=== PATIENT | female | born 1970 | race African-American/Black ===

== ENCOUNTER 2017-05-13 08:47 | Emergency (ER) | payer OTHER, MEDICAID ==
[~2017-05-13] VITALS: Ht 162.6 cm; Wt 113.4 kg
[2017-05-13 09:56] LABS: Basophils # (auto) 0 uL; Basophils % (auto) 0.3 % (0.0-2.0); CONDITION Y; Eosinophils # (auto) 0.1 uL; Eosinophils % (auto) 2.6 % (0.0-7.0); Hemoglobin 14.4 g/dL (12.2-16.2); Lymphocytes # (auto) 1.2 uL; Lymphocytes % (auto) 24.3 % (10.0-50.0); Mean Corpuscular Hgb Conc. 33.5 g/dL (32.0-36.0); Mean Corpuscular Volume 86.7 fL (80.0-100.0); Mean Platelet Volume 9.2 fL (7.4-10.4); Monocytes # (auto) 0.4 uL; Monocytes % (auto) 8.7 % (0.0-12.0); Neutrophils # (auto) 3.2 uL; Neutrophils % (auto) 64.1 % (37.0-80.0); Platelet Count (auto) 265 10^3/uL (140-450); Red Cell Distribution Width 15.1 % (11.6-16.0)
[2017-05-13 10:13] LABS: Albumin 3.1 g/dL (3.4-5.0); Anion Gap 8 (5-15); Aspartate Aminotransferase 16 U/L (15-37); BUN/Creatinine Ratio 9.3; Blood Urea Nitrogen 7 mg/dL (7-18); Calcium 8.8 mg/dL (8.5-10.1); Carbon Dioxide 25 mmol/L (21-32); Chloride 106 mmol/L (98-107); GFR African American 106 mL/min; GFR Non-African American 87 mL/min; Glucose 99 mg/dL (74-106); Potassium 4.1 mmol/L (3.5-5.1); Sodium 139 mmol/L (136-145)
[2017-05-13 10:18] LABS: Alkaline Phosphatase 78 U/L (45-117); Bilirubin, Total 0.3 mg/dL (0.2-1.0); Total Protein 7.9 g/dL (6.4-8.2)
[2017-05-13 10:22] LABS: B-Type Natriuretic Peptide 34.48 pg/mL (0-100)
[2017-05-13 10:25] LABS: Temperature: 22.9 C (20.0-25.0)
[2017-05-13] MEDS ORDERED: cloNIDine HCL 0.1 MG TAB PO ONE (12:00)
[2017-05-13 13:06] VITALS: BP 188/111
[2017-05-13 13:59] LABS: Urine RBC None Seen /hpf (0 - 4)
[2017-05-13 14:07] LABS: Urine Bilirubin Negative (Negative); Urine Blood Negative /uL (Negative); Urine Color Yellow (Yellow); Urine Glucose Normal (Normal); Urine Ketone Negative (Negative); Urine Nitrite Negative (Negative); Urine Squamous Epithelial Cell FEW /hpf (<5); Urine Urobilinogen Normal (Negative); Urine pH 6.5 (5.0-8.0)
== END 2017-05-13 13:34 | disposition home or self-care (01) ==
LOC: ER 08:47
DX: I10 Essential (primary) hypertension (principal); R60.0 Localized edema; Z91.14 Patient's other noncompliance with medication regimen; J45.909 Unspecified asthma, uncomplicated; Z90.710 Acquired absence of both cervix and uterus; E66.9 Obesity, unspecified; Z68.41 Body mass index [BMI] 40.0-44.9, adult
CPT/HCPCS: 36415; 71020; 80053; 81001; 83880; 84484; 85025; 85379; 93005; 93970

== ENCOUNTER 2017-06-21 11:09 | Emergency (ER) | payer OTHER, MEDICAID ==
[~2017-06-21] VITALS: Ht 165.1 cm; Wt 104.3 kg
[2017-06-21 12:24] LABS: Basophils # (auto) 0 uL; Basophils % (auto) 0.9 % (0.0-2.0); CONDITION Y; Eosinophils # (auto) 0.1 uL; Eosinophils % (auto) 2.3 % (0.0-7.0); Hematocrit 44.4 % (36.0-46.0); Hemoglobin 14.4 g/dL (12.2-16.2); Lymphocytes % (auto) 20.4 % (10.0-50.0); Mean Corpuscular Hemoglobin 28.1 pg (28.0-32.0); Mean Corpuscular Hgb Conc. 32.4 g/dL (32.0-36.0); Mean Corpuscular Volume 86.8 fL (80.0-100.0); Mean Platelet Volume 9.7 fL (7.4-10.4); Monocytes # (auto) 0.3 uL; Neutrophils # (auto) 3.3 uL; Neutrophils % (auto) 69.4 % (37.0-80.0); Platelet Count (auto) 302 10^3/uL (140-450); Red Cell Distribution Width 14.9 % (11.6-16.0); White Blood Cell 4.8 10^3/uL (4.4-10.8)
[2017-06-21 13:59] LABS: Albumin 3.2 g/dL (3.4-5.0); Alkaline Phosphatase 78 U/L (45-117); Anion Gap 9 (5-15); Aspartate Aminotransferase 20 U/L (15-37); BUN/Creatinine Ratio 11.1; Bilirubin, Total 0.4 mg/dL (0.2-1.0); Blood Urea Nitrogen 7 mg/dL (7-18); Calcium 8.7 mg/dL (8.5-10.1); Carbon Dioxide 24 mmol/L (21-32); Chloride 104 mmol/L (98-107); GFR African American 129 mL/min; GFR Non-African American 107 mL/min; Glucose 95 mg/dL (74-106); Magnesium 2.2 mg/dL (1.6-2.6); Potassium 3.6 mmol/L (3.5-5.1); Sodium 137 mmol/L (136-145); Total Protein 8.2 g/dL (6.4-8.2)
[2017-06-21 14:03] LABS: B-Type Natriuretic Peptide 1.14 pg/mL (0-100)
[2017-06-21 14:16] LABS: Temperature: 22.3 C (20.0-25.0)
[2017-06-21 17:00] VITALS: BP 138/83
[2017-06-21] MEDS ORDERED: cloNIDine HCL 0.1 MG TAB PO ONE (17:00)
== END 2017-06-21 17:16 | disposition home or self-care (01) ==
LOC: ER 11:09
DX: R60.0 Localized edema (principal); I10 Essential (primary) hypertension; J45.909 Unspecified asthma, uncomplicated; Z90.710 Acquired absence of both cervix and uterus; E66.01 Morbid (severe) obesity due to excess calories; Z68.38 Body mass index [BMI] 38.0-38.9, adult
CPT/HCPCS: 36415; 80053; 83735; 83880; 84484; 85025; 93005; 94761

== ENCOUNTER 2017-12-30 21:48 | Emergency (ER) | payer OTHER, MEDICAID ==
[~2017-12-30] VITALS: Ht 170.2 cm; Wt 83.8 kg
[2017-12-30 23:09] LABS: Basophils # (auto) 0 uL; Basophils % (auto) 0.7 % (0.0-2.0); Eosinophils # (auto) 0.1 uL; Eosinophils % (auto) 2.5 % (0.0-7.0); Hemoglobin 15.3 g/dL (12.2-16.2); Lymphocytes # (auto) 1.3 uL; Lymphocytes % (auto) 27.6 % (10.0-50.0); Mean Corpuscular Hemoglobin 27.6 pg (28.0-32.0); Mean Corpuscular Hgb Conc. 32.6 g/dL (32.0-36.0); Mean Corpuscular Volume 84.5 fL (80.0-100.0); Monocytes # (auto) 0.3 uL; Monocytes % (auto) 5.5 % (0.0-12.0); Neutrophils # (auto) 3.1 uL; Neutrophils % (auto) 63.7 % (37.0-80.0); Nucleated Red Blood Cells % 0.1 %; Platelet Count (auto) 252 10^3/uL (140-450); Red Blood Cells 5.56 10^6/uL (4.0-5.20); Red Cell Distribution Width 16.5 % (11.8-14.3); White Blood Cell 4.9 10^3/uL (4.4-10.8)
[2017-12-30 23:29] LABS: Albumin 3.3 g/dL (3.4-5.0); BUN/Creatinine Ratio 8.7; Calcium 8.8 mg/dL (8.5-10.1); Potassium 4.1 mmol/L (3.5-5.1)
[2017-12-30 23:31] LABS: Bilirubin, Total 0.3 mg/dL (0.2-1.0); Total Protein 8.7 g/dL (6.4-8.2)
[2017-12-31] MEDS ORDERED: SODIUM CHLORIDE 0.9% 1,000 ML IV ONE
[2017-12-31 00:39] LABS: Urine WBC None Seen /hpf (0 - 5)
[2017-12-31 00:42] LABS: Urine Bacteria NONE SEEN /hpf (None Seen); Urine Blood Negative /uL (Negative); Urine Specific Gravity 1.002 (1.001-1.035)
[2017-12-31 00:58] LABS: Amphetamine Screen, Urine NEGATIVE (NEGATIVE); Barbiturate Scree,Urine NEGATIVE (NEGATIVE); Benzodiazephine Screen, Urine NEGATIVE (NEGATIVE); Cannabinoid Screen, Urine NEGATIVE (NEGATIVE); Cocaine Screen, Urine NEGATIVE (NEGATIVE); Opiate Scree,Urine NEGATIVE (NEGATIVE); Phencyclidine Screen, Urine NEGATIVE (NEGATIVE)
[2017-12-31 01:11] VITALS: BP 119/82
== END 2017-12-31 01:35 | disposition home or self-care (01) ==
LOC: EDBD 21:48 → ER 21:53
DX: R53.1 Weakness (principal); F41.9 Anxiety disorder, unspecified; I10 Essential (primary) hypertension; E11.9 Type 2 diabetes mellitus without complications; J45.909 Unspecified asthma, uncomplicated; Z91.14 Patient's other noncompliance with medication regimen; Z90.710 Acquired absence of both cervix and uterus
CPT/HCPCS: 36415; 71045; 80053; 80307; 81001; 83605; 85025

== ENCOUNTER 2018-06-06 15:06 | Emergency (ER) | payer OTHER, MEDICAID ==
[~2018-06-06] VITALS: Ht 170.2 cm; Wt 127.0 kg
[2018-06-06 18:44] VITALS: BP 146/96
== END 2018-06-06 18:47 | disposition home or self-care (01) ==
LOC: ER 15:06
DX: S39.012A Strain of muscle, fascia and tendon of lower back, initial encounter (principal); M43.17 Spondylolisthesis, lumbosacral region; J45.909 Unspecified asthma, uncomplicated; E11.9 Type 2 diabetes mellitus without complications; I10 Essential (primary) hypertension; M25.521 Pain in right elbow; Z90.710 Acquired absence of both cervix and uterus; X50.9XXA Other and unspecified overexertion or strenuous movements or postures, initial encounter; Y93.89 Activity, other specified; Y92.89 Other specified places as the place of occurrence of the external cause; Y99.8 Other external cause status
CPT/HCPCS: 72100; 73070; 82962

== ENCOUNTER 2019-07-31 20:35 | Emergency (ER) | payer OTHER, MEDICAID ==
[~2019-07-31] VITALS: Ht 167.6 cm; Wt 127.0 kg
[2019-07-31 21:11] LABS: Basophils # (auto) 0 uL; Basophils % (auto) 1.1 % (0.0-2.0); Eosinophils # (auto) 0.1 uL; Eosinophils % (auto) 2.6 % (0.0-7.0); Hematocrit 47.9 % (36.0-46.0); Hemoglobin 15.8 g/dL (12.2-16.2); Lymphocytes # (auto) 1.5 uL; Lymphocytes % (auto) 36.9 % (10.0-50.0); Mean Corpuscular Hgb Conc. 33.1 g/dL (32.0-36.0); Mean Corpuscular Volume 87.6 fL (80.0-100.0); Monocytes # (auto) 0.3 uL; Monocytes % (auto) 7.1 % (0.0-12.0); Neutrophils # (auto) 2.1 uL; Neutrophils % (auto) 52.3 % (37.0-80.0); Nucleated Red Blood Cells % 0.1 %; Platelet Count (auto) 236 10^3/uL (140-450); Red Blood Cells 5.47 10^6/uL (4.0-5.20); Red Cell Distribution Width 14.8 % (11.8-14.3)
[2019-07-31 21:13] LABS: Urine WBC None Seen /hpf (0 - 5)
[2019-07-31] MEDS ORDERED: MVI in SODIUM CHLORIDE 0.9% 1,010 ML IV ONE (21:14)
[2019-07-31] MEDS ORDERED: THIAMINE 100mg/ml INJ (200mg/2ml VIAL) IV ONE ×2 (21:15→21:30)
[2019-07-31 21:23] LABS: Urine Bacteria NONE SEEN /hpf (None Seen); Urine Blood Negative /uL (Negative); Urine Specific Gravity 1.004 (1.001-1.035)
[2019-07-31 21:24] LABS: INR 0.95 (0.9-1.15); Partial Thromboplastin Time 25.6 sec (23.64-32.05)
[2019-07-31 21:29] LABS: Albumin 3.3 g/dL (3.4-5.0); Anion Gap 9 (5-15); Blood Urea Nitrogen 7 mg/dL (7-18); Calcium 8.7 mg/dL (8.5-10.1); Carbon Dioxide 22 mmol/L (21-32); Chloride 109 mmol/L (98-107); Glucose 124 mg/dL (74-106); Magnesium 2.2 mg/dL (1.6-2.6); Potassium 3.7 mmol/L (3.5-5.1); Sodium 140 mmol/L (136-145)
[2019-07-31] MEDS ORDERED: FUROSEMIDE 20 MG/2 ML VIAL IV ONE (21:30)
[2019-07-31 21:31] LABS: Lactic Acid w/Reflex 2.3 mmol/L (0.4-2.0)
[2019-07-31 21:33] LABS: Alanine Aminotransferase 20 U/L (13-56); Alkaline Phosphatase 96 U/L (45-117); Aspartate Aminotransferase 16 U/L (15-37); BUN/Creatinine Ratio 10.9; Bilirubin, Total 0.2 mg/dL (0.2-1.0); GFR African American 126 mL/min; GFR Non-African American 104 mL/min; Total Protein 8.5 g/dL (6.4-8.2)
[2019-07-31 21:41] LABS: Amphetamine Screen, Urine NEGATIVE (NEGATIVE); Barbiturate Scree,Urine NEGATIVE (NEGATIVE); Benzodiazephine Screen, Urine NEGATIVE (NEGATIVE); Cannabinoid Screen, Urine NEGATIVE (NEGATIVE); Cocaine Screen, Urine NEGATIVE (NEGATIVE); Opiate Scree,Urine NEGATIVE (NEGATIVE); Phencyclidine Screen, Urine NEGATIVE (NEGATIVE)
== END 2019-08-01 00:48 | disposition home or self-care (01) ==
LOC: EDBD 20:35 → ER 20:40
DX: R41.82 Altered mental status, unspecified (principal); G92 Toxic encephalopathy; F10.129 Alcohol abuse with intoxication, unspecified; I11.0 Hypertensive heart disease with heart failure; I50.9 Heart failure, unspecified; E11.9 Type 2 diabetes mellitus without complications; J45.909 Unspecified asthma, uncomplicated; Z90.710 Acquired absence of both cervix and uterus
CPT/HCPCS: 36415; 70450; 71045; 72125; 80053; 80307; 80320; 81001; 83605; 83735; 84484; 85025; 85610; 85730; 87040; 96374; 96375; 99284; J1940; J3411

== ENCOUNTER 2019-09-07 16:12 | Emergency (ER) | payer OTHER, MEDICAID ==
[~2019-09-07] VITALS: Ht 162.6 cm; Wt 120.7 kg
[2019-09-07 16:30] VITALS: BP 167/99
[2019-09-07] MEDS ORDERED: KETOROLAC TROMETH 60MG/2ML VIAL IM ONE (17:30)
== END 2019-09-07 17:51 | disposition home or self-care (01) ==
LOC: ER 16:12
DX: M17.12 Unilateral primary osteoarthritis, left knee (principal); J45.909 Unspecified asthma, uncomplicated; I11.0 Hypertensive heart disease with heart failure; I50.9 Heart failure, unspecified; E11.9 Type 2 diabetes mellitus without complications; Z90.710 Acquired absence of both cervix and uterus
CPT/HCPCS: 73562; 96372; 99283; J1885

== ENCOUNTER → 2020-01-08 | Emergency (ER) | payer OTHER, MEDICAID ==
[~2020-01-08] VITALS: Ht 162.6 cm; Wt 117.0 kg
[~2020-01-08] MED LIST: SODIUM CHLORIDE 0.9% 1,000 ML IV ONE; cefTRIAXone 1GM/50ML D5W 50 ML IV ONE; methylPREDNISolone SOD SUCC 125 MG/2 ML VL IV ONE
[2020-01-08 22:45] VITALS: BP 160/95
== END | disposition home or self-care (01) ==
LOC: EDUNIT# 20:38 → ER 20:38 → EDBD 20:38
DX: J02.9 Acute pharyngitis, unspecified (principal); I11.0 Hypertensive heart disease with heart failure; I50.9 Heart failure, unspecified; E11.9 Type 2 diabetes mellitus without complications; J45.909 Unspecified asthma, uncomplicated
CPT/HCPCS: 87804; 87880; 96365; 96375; 99284; J0696; J2930; J7030

== ENCOUNTER 2020-05-03 21:36 | Inpatient (IN) | payer OTHER, MEDICAID ==
[~2020-05-03] VITALS: Ht 167.6 cm; Wt 136.1 kg
[2020-05-03] MEDS ORDERED: ALBUTEROL SULF 2.5 MG/0.5ML(0.5%) NEB SOLN NEB ONE (23:00)
[2020-05-03] MEDS ORDERED: methylPREDNISolone SOD SUCC 125 MG in SODIUM CHL 0.9% 100 ML IV ONE (23:00)
[2020-05-03] MEDS ORDERED: IPRATROPIUM BROM 0.5 MG/2.5ML INH SOL NEB ONE (23:00)
[2020-05-03] MEDS ORDERED: cefTRIAXone 1GM/50ML D5W 50 ML IV ONE (23:00)
[2020-05-04] MEDS ORDERED: MORPHINE SULF INJ 2 MG/ML SYRINGE 1ML IV PRN (00:30)
[2020-05-04] MEDS ORDERED: ACETAMINOPHEN 500 MG TAB PO PRN (00:30)
[2020-05-04] MEDS ORDERED: ACETAMINOPHEN 325 MG TAB PO PRN (00:30)
[2020-05-04] MEDS ORDERED: HYDROcodone-ACET 5/325MG TAB PO PRN (00:30)
[2020-05-04] MEDS ORDERED: DOCUSATE SOD 100 MG CAP PO PRN (00:30)
[2020-05-04] MEDS ORDERED: ONDANSETRON HCL 4 MG/2 ML VIAL IV PRN (00:30)
[2020-05-04 00:48] LABS: Basophils # (auto) 0 10 ^3/uL (0-0.2); Basophils % (auto) 1.1 % (0.0-2.0); Eosinophils # (auto) 0.1 10 ^3/uL (0-0.8); Eosinophils % (auto) 1.5 % (0.0-7.0); Hemoglobin 15.5 g/dL (12.2-16.2); Lymphocytes # (auto) 1.9 10 ^3/uL (0.4-5.4); Mean Corpuscular Hemoglobin 28.4 pg (28.0-32.0); Mean Corpuscular Hgb Conc. 32.3 g/dL (32.0-36.0); Mean Corpuscular Volume 88.1 fL (80.0-100.0); Monocytes # (auto) 0.3 10 ^3/uL (0-1.3); Monocytes % (auto) 6.9 % (0.0-12.0); Neutrophils # (auto) 1.6 10 ^3/uL (1.6-8.6); Neutrophils % (auto) 40.5 % (37.0-80.0); Nucleated Red Blood Cells % 0.5 %; Platelet Count (auto) 227 10^3/uL (140-450); Red Blood Cells 5.44 10^6/uL (4.0-5.20); Red Cell Distribution Width 15.2 % (11.8-14.3); White Blood Cell 3.9 10^3/uL (4.4-10.8)
[2020-05-04 00:57] LABS: INR 1.01 (0.9-1.15); Partial Thromboplastin Time 25.3 sec (23.64-32.05)
[2020-05-04 01:01] LABS: Albumin 3.2 g/dL (3.4-5.0); Anion Gap 13 (5-15); Blood Urea Nitrogen 6 mg/dL (7-18); Calcium 8.2 mg/dL (8.5-10.1); Carbon Dioxide 20 mmol/L (21-32); Chloride 104 mmol/L (98-107); Glucose 189 mg/dL (74-106); Magnesium 1.9 mg/dL (1.6-2.6); Potassium 3.1 mmol/L (3.5-5.1); Sodium 137 mmol/L (136-145)
[2020-05-04 01:03] LABS: Alanine Aminotransferase 34 U/L (13-56); Aspartate Aminotransferase 29 U/L (15-37); BUN/Creatinine Ratio 7.6; GFR African American 98 mL/min; GFR Non-African American 81 mL/min
[2020-05-04 01:08] LABS: Alkaline Phosphatase 101 U/L (45-117); Bilirubin, Total 0.2 mg/dL (0.2-1.0); Total Protein 8.4 g/dL (6.4-8.2)
[2020-05-04] MEDS ORDERED: methylPREDNISolone SOD SUCC 125 MG/2 ML VL ONE (05:05)
[2020-05-04] MEDS ORDERED: ALBUTEROL SULF HFA 90MCG INH 200DOSE IN SCH (06:00)
[2020-05-04 10:00] VITALS: BP 154/95
[2020-05-04] MEDS ORDERED: ENOXAPARIN SOD 40 MG/0.4 ML SYRINGE SC SCH (10:00)
[2020-05-04] MEDS ORDERED: DOXYCYCLINE 100 MG TAB/CAP PO SCH (10:00)
[2020-05-04] MEDS ORDERED: ZINC SULFATE 220mg CAP or TAB PO SCH (10:00)
[2020-05-04] MEDS ORDERED: ASCORBIC ACID 1,000 MG TAB PO SCH (10:00)
[2020-05-04] MEDS ORDERED: CHOLECALCIFEROL (VITD3) 1,000UNIT=25mCg TAB PO SCH (10:00)
[2020-05-04] MEDS ORDERED: POTASSIUM CHL 20MEQ/100ML 100 ML IV SCH (12:30)
[2020-05-04] MEDS ORDERED: FUROSEMIDE 40 MG/4 ML VIAL IV ONE (12:30)
[2020-05-04] MEDS ORDERED: POTASSIUM CHL 20 Meq TABLET PO ONE (12:30)
[2020-05-04] MEDS ORDERED: LEVALBUTEROL HCL 1.25 MG/3 ML NEB NEB PRN (12:45)
[2020-05-04] MEDS ORDERED: ATORVASTATIN 20 MG TAB PO SCH (22:00)
== END 2020-05-04 10:20 | disposition left against medical advice (07) | DRG 202 ==
LOC: EDUNIT# 21:36 → ER 21:36 → EDBD 21:36 → TELE 21:37
PROVIDERS: ADMIT Hospitalist; ATTEND Hospitalist
DX: J45.901 Unspecified asthma with (acute) exacerbation (principal); Z68.42 Body mass index [BMI] 45.0-49.9, adult; I11.0 Hypertensive heart disease with heart failure; I50.9 Heart failure, unspecified; E11.9 Type 2 diabetes mellitus without complications; E66.01 Morbid (severe) obesity due to excess calories; Z53.29 Procedure and treatment not carried out because of patient's decision for other reasons; Z20.828 Contact with and (suspected) exposure to other viral communicable diseases; Z90.710 Acquired absence of both cervix and uterus; Z91.14 Patient's other noncompliance with medication regimen; E78.5 Hyperlipidemia, unspecified; Z82.49 Family history of ischemic heart disease and other diseases of the circulatory system; Z83.3 Family history of diabetes mellitus
CPT/HCPCS: 36415; 71045; 80053; 83735; 83880; 84484; 85025; 85610; 85730; 93005; 94640; G0378; J0696

== ENCOUNTER 2020-08-13 22:02 | Inpatient (IN) | payer OTHER, MEDICAID ==
[~2020-08-13] VITALS: Ht 162.6 cm; Wt 125.6 kg
[2020-08-13] MEDS ORDERED: IPRATROPIUM BROM 0.5 MG/2.5ML INH SOL HHN ONE (22:30)
[2020-08-13] MEDS ORDERED: methylPREDNISolone SOD SUCC 125 MG/2 ML VL IV ONE (22:30)
[2020-08-13] MEDS ORDERED: ALBUTEROL SULF 2.5 MG/0.5ML(0.5%) NEB SOLN HHN ONE (22:30)
[2020-08-13] MEDS ORDERED: ENALAPRILAT 1.25 MG/ML-1ML VIAL IV ONE (22:45)
[2020-08-13 22:50] LABS: Basophils # (auto) 0.1 10 ^3/uL (0-0.2); Basophils % (auto) 1.3 % (0.0-2.0); Eosinophils # (auto) 0.2 10 ^3/uL (0-0.8); Eosinophils % (auto) 4.2 % (0.0-7.0); Hematocrit 45.4 % (36.0-46.0); Hemoglobin 15.2 g/dL (12.2-16.2); Lymphocytes # (auto) 1.5 10 ^3/uL (0.4-5.4); Lymphocytes % (auto) 37.5 % (10.0-50.0); Mean Corpuscular Hemoglobin 29.3 pg (28.0-32.0); Mean Corpuscular Hgb Conc. 33.5 g/dL (32.0-36.0); Mean Corpuscular Volume 87.6 fL (80.0-100.0); Monocytes # (auto) 0.3 10 ^3/uL (0-1.3); Monocytes % (auto) 8.7 % (0.0-12.0); Neutrophils # (auto) 1.9 10 ^3/uL (1.6-8.6); Neutrophils % (auto) 48.3 % (37.0-80.0); Nucleated Red Blood Cells % 0.2 %; Platelet Count (auto) 241 10^3/uL (140-450); Red Blood Cells 5.18 10^6/uL (4.0-5.20); Red Cell Distribution Width 15.5 % (11.8-14.3); White Blood Cell 3.9 10^3/uL (4.4-10.8)
[2020-08-13 23:14] LABS: Alanine Aminotransferase 38 U/L (13-56); Albumin 3.3 g/dL (3.4-5.0); Anion Gap 9 (5-15); Aspartate Aminotransferase 40 U/L (15-37); BUN/Creatinine Ratio 8.8; Blood Urea Nitrogen 6 mg/dL (7-18); Carbon Dioxide 22 mmol/L (21-32); Chloride 105 mmol/L (98-107); GFR African American 117 mL/min; GFR Non-African American 97 mL/min; Glucose 102 mg/dL (74-106); Magnesium 2.2 mg/dL (1.6-2.6); Potassium 4.1 mmol/L (3.5-5.1); Sodium 136 mmol/L (136-145)
[2020-08-13 23:17] LABS: Alkaline Phosphatase 97 U/L (45-117); Bilirubin, Total 0.3 mg/dL (0.2-1.0); Lactic Acid w/Reflex 2.3 mmol/L (0.4-2.0)
[2020-08-13] MEDS ORDERED: ONDANSETRON HCL 4 MG/2 ML VIAL ONE (23:26)
[2020-08-13] MEDS ORDERED: ONDANSETRON HCL 4 MG/2 ML VIAL IV ONE (23:30)
[2020-08-14] MEDS ORDERED: NITROGLYCERIN 0.4MG/HR TOPICAL PATCH TD ONE (02:00)
[2020-08-14] MEDS ORDERED: ONDANSETRON HCL 4 MG/2 ML VIAL IV PRN (03:00)
[2020-08-14] MEDS ORDERED: NITROGLYCERIN 0.4 MG SL TAB SL PRN (03:00)
[2020-08-14] MEDS ORDERED: ACETAMINOPHEN 325 MG TAB PO PRN (03:00)
[2020-08-14] MEDS ORDERED: TEMAZEPAM 15 MG CAP PO PRN (03:00)
[2020-08-14] MEDS ORDERED: MORPHINE SULF INJ 2 MG/ML SYRINGE 1ML IV PRN (03:00)
[2020-08-14] MEDS: cefTRIAXone 1GM/50ML D5W 50 ML IV SCH (03:58)
[2020-08-14] MEDS: ALBUTEROL SULF 2.5 MG/0.5ML(0.5%) NEB SOLN NEB SCH ×3 (05:52→18:43)
[2020-08-14] MEDS: IPRATROPIUM BROM 0.5 MG/2.5ML INH SOL NEB SCH ×3 (05:52→18:43)
[2020-08-14] MEDS ORDERED: ALBUTEROL SULF 2.5 MG/0.5ML(0.5%) NEB SOLN NEB SCH (06:00)
[2020-08-14 06:14] VITALS: BP 131/76
[2020-08-14 09:42] VITALS: BP 134/75
[2020-08-14] MEDS ORDERED: HCTZ 25 MG TAB PO SCH (10:00)
[2020-08-14] MEDS: ENOXAPARIN SOD 40 MG/0.4 ML SYRINGE SC SCH (12:38)
[2020-08-14] MEDS: FAMOTIDINE 20 MG TAB PO SCH ×2 (12:38→21:40)
[2020-08-14] MEDS: amLODIPine BESYLATE 5 MG TAB PO SCH (12:39)
[2020-08-14 13:00] VITALS: BP 136/73
[2020-08-14] MEDS ORDERED: BUMETANIDE 2.5mg/10ml (0.25 mg/ml) INJ IV ONE (15:15)
[2020-08-14 16:36] VITALS: BP 143/76
[2020-08-14] MEDS ORDERED: IOHEXOL 350 MG/ML 100ML IJ ONE ×2 (17:15→22:04)
[2020-08-14] MEDS: BUDESONIDE (INHALATION) 0.5 MG/2 ML NEB NEB SCH (18:43)
--- NOTE | 2020-08-14 18:54 | NUR ---
PER MATERIALS INSPECTOR PATIENT UNABLE TO HAVE CT ANGIO. IV 20 TO RIGHT WRIST UNABLE TO PUSH CONTRAST. WILL ENDORSE TO NIGHT RN PATIENT WILL NEED A NEW IV 20 ABOVE THE WRIST AND BELOW THE SHOULDER, THEN PATIENT CAN BE TRANSPORTED VIA HOSPITAL BED BY RN AND BULB PLANTER , MERCEDES HERRING AND CRISTÓBAL AND THEY WILL NEED TO BE NOTIFIED PRIOR TO BRINGING THE PATIENT DOWN.
[2020-08-14] MEDS: methylPREDNISolone SOD SUCC 40 MG/ML VL IV SCH (19:04)
--- NOTE | 2020-08-14 19:30 | NUR ---
Opening Shift Note Assumed care of patient, awake and alert. No S/S of distress/SOB or pain. Instructed on POC and to call for assist PRN. Bed in lowest locked position, call light within reach, side rails up x2, will continue to monitor for changes Q1hr and PRN.
--- NOTE | 2020-08-14 20:06 | NUR ---
ENDORSED CARE TO NIGHT RN.
--- NOTE | 2020-08-14 20:10 | NUR ---
IV insertion IV access obtained, via clean sterile technique by inserting 20 gauge catheter at LFA after 1 attempt. IV secured properly. No trauma to site. Patient tolerated well.
[2020-08-14 21:41] VITALS: BP 118/51
[2020-08-14] MEDS: HCTZ 25 MG TAB PO SCH (21:41)
[2020-08-14] MEDS ORDERED: MONTELUKAST SODIUM 10 MG TAB PO SCH (22:00)
[2020-08-15] MEDS: methylPREDNISolone SOD SUCC 40 MG/ML VL IV SCH ×3 (00:04→11:44)
[2020-08-15 05:00] VITALS: BP 118/57
[2020-08-15] MEDS: IPRATROPIUM BROM 0.5 MG/2.5ML INH SOL NEB SCH ×2 (06:45→11:58)
[2020-08-15] MEDS: ALBUTEROL SULF 2.5 MG/0.5ML(0.5%) NEB SOLN NEB SCH ×2 (06:45→11:58)
[2020-08-15] MEDS: BUDESONIDE (INHALATION) 0.5 MG/2 ML NEB NEB SCH (06:46)
[2020-08-15 07:29] LABS: Basophils # (auto) 0 10 ^3/uL (0-0.2); Basophils % (auto) 0.3 % (0.0-2.0); Eosinophils # (auto) 0 10 ^3/uL (0-0.8); Eosinophils % (auto) 0.1 % (0.0-7.0); Hematocrit 44.7 % (36.0-46.0); Hemoglobin 14.8 g/dL (12.2-16.2); Lymphocytes # (auto) 0.6 10 ^3/uL (0.4-5.4); Lymphocytes % (auto) 8.5 % (10.0-50.0); Mean Corpuscular Volume 87.7 fL (80.0-100.0); Monocytes # (auto) 0.2 10 ^3/uL (0-1.3); Monocytes % (auto) 3.3 % (0.0-12.0); Neutrophils # (auto) 6.5 10 ^3/uL (1.6-8.6); Neutrophils % (auto) 87.8 % (37.0-80.0); Nucleated Red Blood Cells % 0.3 %; Platelet Count (auto) 256 10^3/uL (140-450); Red Blood Cells 5.09 10^6/uL (4.0-5.20); Red Cell Distribution Width 15.9 % (11.8-14.3); White Blood Cell 7.4 10^3/uL (4.4-10.8)
[2020-08-15 07:41] LABS: BUN/Creatinine Ratio 16.5; Calcium 9.4 mg/dL (8.5-10.1); Potassium 4.3 mmol/L (3.5-5.1)
--- NOTE | 2020-08-15 08:00 | NUR ---
OPENING SHIFT NOTE ASSUMED CARE OF PATIENT AWAKE AND ALERT. NO S/S OF DISTRESS NOTED OR COMPLAINTS OF PAIN. PATIENT UPDATED ON POC FOR THE DAY AND ALL QUESTIONS ANSWERED. BED IS IN LOWEST, LOCKED POSITION WITH SIDE RAILS UP X2 AND CALL LIGHT WITHIN REACH. WILL CONTINUE TO MONITOR Q1H AND PRN.
[2020-08-15 08:38] VITALS: BP 153/85
[2020-08-15] MEDS: cefTRIAXone 1GM/50ML D5W 50 ML IV SCH (09:26)
[2020-08-15] MEDS: HCTZ 25 MG TAB PO SCH (09:29)
[2020-08-15] MEDS: ENOXAPARIN SOD 40 MG/0.4 ML SYRINGE SC SCH (09:29)
[2020-08-15] MEDS: FAMOTIDINE 20 MG TAB PO SCH (09:29)
[2020-08-15] MEDS: amLODIPine BESYLATE 5 MG TAB PO SCH (09:30)
--- NOTE | 2020-08-15 11:02 | NUR ---
1030 08/15/20 - Faxed to [facility]/ at [phone] face sheet, order for home med nebulizer treatments, H/P. Contacted [facility]/ case maker Adina at [phone] who confirmed receiving all faxed documentation. Adina stated order will be sent to [facility] dept for processing. Pending review and delivery to patient's home. Addendum: 08/15/20 at 1207 by Kayy Michaels RN, CM 1200 08/15/20 - Faxed to [facility] at [phone], face sheet, order for home med nebulizer, H/P, provided authorization [id number] per [facility] LUDY Holden. Pending review and DME delivery to patient. Addendum: 08/15/20 at 1339 by Kayy Michaels RN, CM DME supplies have been delivered to bedside
--- NOTE | 2020-08-15 12:28 | NUR ---
Assessment Patient is a 50-year-old female who is alert and oriented. Prior to admission patient lived with family and functioned with assistance. per patient her niece Radha helps as needed. Patient states she does not have any medical equipment now. Per patient she will return home to her prior living arrangements post discharge and family will transport patient. Advised patient there is a social service consult for a nebulizer. Informed patient she has the right to participate in all discharge planning. Patient verbalized understanding and agreed to discharge plan. Received a call from LUDY Sultana advising me order for the nebulizer has been completed and she will follow up with [facility] and health plan. Addendum: 08/15/20 at 1232 by KAYE PINEDA Amended: Links added.
[2020-08-15 12:59] VITALS: BP 149/75
--- NOTE | 2020-08-15 13:12 | NUR ---
HOME MED NEBS HOME MED NEBS DELIVERED AND TAKEN TO PATIENT'S BEDSIDE.
[2020-08-15] MEDS ORDERED: FAMO-12 PO (15:10)
[2020-08-15] MEDS ORDERED: IPR002IS NEB (15:10)
[2020-08-15] MEDS ORDERED: ALB5IS NEB (15:10)
[2020-08-15] MEDS ORDERED: AML5T PO (15:10)
[2020-08-15] MEDS ORDERED: MONT10TA23 PO (15:10)
[2020-08-15] MEDS ORDERED: PRED20TA2 PO (15:10)
[2020-08-15] MEDS ORDERED: AMOX500T86 PO (15:11)
--- NOTE | 2020-08-15 15:58 | NUR ---
1555 08/15/20- Faxed to [facility] at [phone] face sheet, order for home med nebulizer and home health to show how to use nebulizer and COPD eval. Contacted [facility] LUDY Holden who confirmed receiving all documents faxed. Pending review and accepting home health.
--- NOTE | 2020-08-15 16:54 | NUR ---
Discharge instructions given as ordered. Encourage to follow up with PMD as instructed. All questions and concerns addressed. Patient verbalized understanding. IV removed with catheter intact, pressure dressing applied. Telemetry unit returned to ICU. Patient taken to vehicle via wheelchair with all personal belongings including med nebs, accompanied by staff. No distress noted at time of departure.
== END 2020-08-15 16:50 | disposition home or self-care (01) | DRG 191 ==
LOC: EDBD 22:02 → ER 22:18 → TELE 22:19 → TELE-WESTW 08-14 09:50
PROVIDERS: ADMIT Nurse Practitioner; ATTEND Hospitalist
DX: J44.1 Chronic obstructive pulmonary disease with (acute) exacerbation (principal); J45.901 Unspecified asthma with (acute) exacerbation; E66.01 Morbid (severe) obesity due to excess calories; I50.9 Heart failure, unspecified; E11.9 Type 2 diabetes mellitus without complications; I11.0 Hypertensive heart disease with heart failure; Z79.899 Other long term (current) drug therapy; Z68.39 Body mass index [BMI] 39.0-39.9, adult; Z90.710 Acquired absence of both cervix and uterus; Z83.3 Family history of diabetes mellitus; Z82.49 Family history of ischemic heart disease and other diseases of the circulatory system
CPT/HCPCS: 36415; 36600; 71045; 71275; 80048; 80053; 82805; 83605; 83735; 83880; 84484; 85025; 85379; 87040; 93005; 93306; 94640; 96374; 96375; G0378; J0696; J2405

== ENCOUNTER 2021-09-03 22:01 | Emergency (ER) | payer OTHER, MEDICAID ==
[~2021-09-03] VITALS: Ht 165.1 cm; Wt 113.4 kg
[~2021-09-03 22:01] MED LIST changes: +ALB5IS NEB; +AML5T PO; +AMOX500T86 PO; +FAMO-12 PO; +IPR002IS NEB; +MONT10TA23 PO; +PRED20TA2 PO; -SODIUM CHLORIDE 0.9% 1,000 ML IV ONE; -cefTRIAXone 1GM/50ML D5W 50 ML IV ONE; -methylPREDNISolone SOD SUCC 125 MG/2 ML VL IV ONE
[2021-09-04 02:00] VITALS: BP 154/108
== END 2021-09-04 02:14 | disposition home or self-care (01) ==
LOC: EDUNIT# 22:01 → EDBD 22:01 → ER 22:03
DX: F42.8 Other obsessive-compulsive disorder (principal); I11.0 Hypertensive heart disease with heart failure; I50.9 Heart failure, unspecified; E11.9 Type 2 diabetes mellitus without complications; J45.909 Unspecified asthma, uncomplicated; Z90.710 Acquired absence of both cervix and uterus
CPT/HCPCS: 93005

== ENCOUNTER 2021-12-01 23:39 | Emergency (ER) | payer OTHER, MEDICAID ==
[2021-12-01 23:40] VITALS: BP 165/117
[2021-12-01] MEDS ORDERED: amLODIPine BESYLATE 5 MG TAB ONE (23:53)
[2021-12-02 01:18] LABS: Basophils # (auto) 0 10 ^3/uL (0-0.2); Basophils % (auto) 0.8 % (0.0-2.0); Eosinophils # (auto) 0.1 10 ^3/uL (0-0.8); Monocytes # (auto) 0.3 10 ^3/uL (0-1.3); Neutrophils # (auto) 1.7 10 ^3/uL (1.6-8.6); Nucleated Red Blood Cells % 0.1 %; White Blood Cell 3.8 10^3/uL (4.4-10.8)
[2021-12-02 01:26] LABS: Eosinophils % (auto) 2.3 % (0.0-7.0); Hematocrit 43.4 % (36.0-46.0); Lymphocytes # (auto) 1.6 10 ^3/uL (0.4-5.4); Lymphocytes % (auto) 43.6 % (10.0-50.0); Mean Corpuscular Hgb Conc. 32.2 g/dL (32.0-36.0); Mean Corpuscular Volume 80.9 fL (80.0-100.0); Monocytes % (auto) 7.8 % (0.0-12.0); Neutrophils % (auto) 45.5 % (37.0-80.0); Red Blood Cells 5.36 10^6/uL (4.0-5.20); Red Cell Distribution Width 15.6 % (11.8-14.3)
[2021-12-02 01:28] LABS: Albumin 3.2 g/dL (3.4-5.0); BUN/Creatinine Ratio 11.9; Calcium 8.9 mg/dL (8.5-10.1); Potassium 3.7 mmol/L (3.5-5.1)
[2021-12-02 01:29] LABS: Bilirubin, Total 0.2 mg/dL (0.2-1.0); Total Protein 8.2 g/dL (6.4-8.2)
[2021-12-02] MEDS ORDERED: amLODIPine BESYLATE 5 MG TAB PO ONE ×2 (07:15)
== END 2021-12-02 08:17 | disposition left against medical advice (07) ==
LOC: ER 23:39 → EDBD 23:39 → ER 12-02 08:17
DX: R51.9 Headache, unspecified (principal); R42 Dizziness and giddiness; I11.0 Hypertensive heart disease with heart failure; I50.9 Heart failure, unspecified; E11.9 Type 2 diabetes mellitus without complications; J45.909 Unspecified asthma, uncomplicated; Z90.710 Acquired absence of both cervix and uterus; Z79.899 Other long term (current) drug therapy; Z79.2 Long term (current) use of antibiotics
CPT/HCPCS: 36415; 71045; 80053; 83735; 85025; 93005

== ENCOUNTER 2022-11-15 18:38 | Inpatient (IN) | payer OTHER, MEDICAID ==
[~2022-11-15] VITALS: Ht 172.7 cm; Wt 136.0 kg
[2022-11-15] MEDS ORDERED: IPRATROPIUM BROM 0.5 MG/2.5ML INH SOL HHN ONE (18:45)
[2022-11-15] MEDS ORDERED: ALBUTEROL SULF 2.5 MG/0.5ML(0.5%) NEB SOLN HHN ONE (18:45)
[2022-11-15] MEDS ORDERED: methylPREDNISolone SOD SUCC 125 MG/2 ML VL IV ONE (18:45)
[2022-11-15 19:00] VITALS: BP 153/108
[2022-11-15 19:39] VITALS: BP 153/108
[2022-11-15 20:00] LABS: Basophils # (auto) 0 10 ^3/uL (0-0.2); Eosinophils # (auto) 0.1 10 ^3/uL (0-0.8); Monocytes # (auto) 0.4 10 ^3/uL (0-1.3); Neutrophils # (auto) 1.6 10 ^3/uL (1.6-8.6); Nucleated Red Blood Cells % 0.1 %; White Blood Cell 4.2 10^3/uL (4.4-10.8)
[2022-11-15 20:02] LABS: Basophils % (auto) 0.2 % (0.0-2.0); Eosinophils % (auto) 3.1 % (0.0-7.0); Hematocrit 48.1 % (36.0-46.0); Lymphocytes % (auto) 48.5 % (10.0-50.0); Mean Corpuscular Hemoglobin 25.8 pg (28.0-32.0); Mean Corpuscular Hgb Conc. 31.2 g/dL (32.0-36.0); Mean Corpuscular Volume 82.9 fL (80.0-100.0); Monocytes % (auto) 9.2 % (0.0-12.0); Red Blood Cells 5.81 10^6/uL (4.0-5.20); Red Cell Distribution Width 16.2 % (11.8-14.3)
[2022-11-15 20:15] LABS: Albumin 3.4 g/dL (3.4-5.0); BUN/Creatinine Ratio 10.5; Potassium 3.5 mmol/L (3.5-5.1)
[2022-11-15 20:17] LABS: Lactic Acid w/Reflex 2.8 mmol/L (0.4-2.0)
[2022-11-15 20:18] LABS: Bilirubin, Total 0.3 mg/dL (0.2-1.0); Total Protein 8.5 g/dL (6.4-8.2)
[2022-11-15] MEDS ORDERED: NITROGLYCERIN 0.4 MG SL TAB SL PRN ×2 (21:30→21:45)
[2022-11-15] MEDS ORDERED: ALBUTEROL SULF 2.5 MG/0.5ML(0.5%) NEB SOLN NEB PRN (21:30)
[2022-11-15] MEDS ORDERED: MORPHINE SULFATE INJ 2 MG/ml SYRG IV PRN ×3 (21:30→21:45)
[2022-11-15] MEDS ORDERED: ONDANSETRON HCL 4 MG/2 ML VIAL IV PRN ×2 (21:30→21:45)
[2022-11-15] MEDS ORDERED: ACETAMINOPHEN 325 MG TAB PO PRN (21:45)
[2022-11-15] MEDS ORDERED: DOCUSATE SOD 100 MG CAP PO PRN (21:45)
[2022-11-15] MEDS ORDERED: HYDROcodone-ACET 5/325MG TAB PO PRN (21:45)
[2022-11-15] MEDS ORDERED: MONTELUKAST SODIUM 10 MG TAB PO SCH (22:00)
[2022-11-15] MEDS ORDERED: levoFLOXacin 500MG 100 ML IV SCH (22:00)
[2022-11-15] MEDS: FAMOTIDINE 20 MG TAB PO SCH (22:51)
[2022-11-16] MEDS ORDERED: hydrALAZINE HCL 20 MG/ML VL IV PRN (03:45)
[2022-11-16] MEDS: methylPREDNISolone SOD SUCC 125 MG/2 ML VL IV SCH ×2 (06:09→14:04)
[2022-11-16] MEDS: FAMOTIDINE 20 MG TAB PO SCH (09:31)
[2022-11-16] MEDS ORDERED: amLODIPine BESYLATE 5 MG TAB PO SCH (10:00)
[2022-11-16] MEDS ORDERED: PANTOPRAZOLE 40 MG TAB PO SCH (10:00)
[2022-11-16 14:53] VITALS: BP 136/80
== END 2022-11-16 15:21 | disposition left against medical advice (07) | DRG 189 ==
LOC: EDBD 18:38 → ER 18:39 → TELE 21:30
PROVIDERS: ADMIT Internal Medicine; ATTEND Internal Medicine
PROC: 5A09357 Assistance with Respiratory Ventilation, Less than 24 Consecutive Hours, Continuous Positive Airway Pressure (ICD-10-PCS; principal; 2022-11-15)
DX: J96.01 Acute respiratory failure with hypoxia (principal); J45.901 Unspecified asthma with (acute) exacerbation; J44.1 Chronic obstructive pulmonary disease with (acute) exacerbation; Z68.42 Body mass index [BMI] 45.0-49.9, adult; E11.9 Type 2 diabetes mellitus without complications; E66.01 Morbid (severe) obesity due to excess calories; Z20.822 Contact with and (suspected) exposure to COVID-19; Z53.29 Procedure and treatment not carried out because of patient's decision for other reasons; I11.0 Hypertensive heart disease with heart failure; I50.9 Heart failure, unspecified; Z90.710 Acquired absence of both cervix and uterus; Z83.3 Family history of diabetes mellitus; Z82.49 Family history of ischemic heart disease and other diseases of the circulatory system
CPT/HCPCS: 36415; 36600; 71045; 80053; 82805; 83605; 83880; 84484; 85025; 85379; 87040; 87426; 87804; 93005; 94660; 96374; 99291; G0378; J1956

== ENCOUNTER 2022-12-16 14:44 | Inpatient (IN) | payer OTHER, MEDICAID ==
[~2022-12-16] VITALS: Ht 162.6 cm; Wt 137.5 kg
[2022-12-16 16:24] LABS: Basophils # (auto) 0.1 10 ^3/uL (0-0.2); Basophils % (auto) 1.3 % (0.0-2.0); Eosinophils # (auto) 0.1 10 ^3/uL (0-0.8); Hematocrit 45.2 % (36.0-46.0); Hemoglobin 15.1 g/dL (12.2-16.2); Lymphocytes # (auto) 1.7 10 ^3/uL (0.4-5.4); Lymphocytes % (auto) 36.9 % (10.0-50.0); Mean Corpuscular Hgb Conc. 33.5 g/dL (32.0-36.0); Mean Corpuscular Volume 80.5 fL (80.0-100.0); Monocytes # (auto) 0.3 10 ^3/uL (0-1.3); Monocytes % (auto) 7.3 % (0.0-12.0); Neutrophils # (auto) 2.3 10 ^3/uL (1.6-8.6); Neutrophils % (auto) 51.5 % (37.0-80.0); Nucleated Red Blood Cells % 0.2 %; Red Blood Cells 5.62 10^6/uL (4.0-5.20); Red Cell Distribution Width 16.2 % (11.8-14.3); White Blood Cell 4.5 10^3/uL (4.4-10.8)
[2022-12-16 16:38] LABS: Alanine Aminotransferase 20 U/L (13-56); Albumin 3.3 g/dL (3.4-5.0); Anion Gap 7 (5-15); Aspartate Aminotransferase 17 U/L (15-37); BUN/Creatinine Ratio 13.8; Blood Urea Nitrogen 9 mg/dL (7-18); Calcium 8.8 mg/dL (8.5-10.1); Carbon Dioxide 27 mmol/L (21-32); Chloride 104 mmol/L (98-107); GFR African American 122 mL/min; GFR Non-African American 101 mL/min; Glucose 112 mg/dL (74-106); Potassium 4.2 mmol/L (3.5-5.1); Sodium 138 mmol/L (136-145)
[2022-12-16 16:39] LABS: INR 0.97 (0.9-1.15); Partial Thromboplastin Time 26.8 sec (24.6-33.4)
[2022-12-16 16:40] LABS: Alkaline Phosphatase 100 U/L (45-117); Bilirubin, Total 0.4 mg/dL (0.2-1.0); Total Protein 7.5 g/dL (6.4-8.2)
[2022-12-16] MEDS ORDERED: IPRATROPIUM BROM 0.5 MG/2.5ML INH SOL NEB ONE (18:00)
[2022-12-16] MEDS ORDERED: LABETALOL HCL 5 MG/ML 4ML SYRINGE IV ONE (18:00)
[2022-12-16] MEDS ORDERED: ALBUTEROL SULF 2.5 MG/0.5ML(0.5%) NEB SOLN NEB ONE (18:00)
[2022-12-16] MEDS ORDERED: methylPREDNISolone SOD SUCC 125 MG/2 ML VL IV ONE (18:00)
[2022-12-16] MEDS ORDERED: ALBUTEROL MEDNEB 2.5 mg/3ml NEB ONE (18:19)
[2022-12-16] MEDS ORDERED: ACETAMINOPHEN 325 MG TAB PO PRN (20:30)
[2022-12-16] MEDS ORDERED: MORPHINE SULFATE INJ 2 MG/ml SYRG IV PRN (20:30)
[2022-12-16] MEDS ORDERED: NITROGLYCERIN 0.4 MG SL TAB SL PRN (20:30)
[2022-12-16] MEDS ORDERED: cloNIDine HCL 0.1 MG TAB PO PRN (20:30)
[2022-12-16] MEDS ORDERED: IPRATROPIUM BROM 0.5 MG/2.5ML INH SOL NEB PRN (20:30)
[2022-12-16] MEDS ORDERED: ONDANSETRON HCL 4 MG/2 ML VIAL IV PRN (20:30)
[2022-12-16] MEDS ORDERED: DEXTROSE (50%) 50ML SYRG IV PRN (20:30)
[2022-12-16] MEDS ORDERED: TEMAZEPAM 15 MG CAP PO PRN (20:30)
[2022-12-16] MEDS ORDERED: ALBUTEROL MEDNEB 2.5 mg/3ml NEB NEB PRN (20:30)
[2022-12-16 20:47] VITALS: BP 181/112
[2022-12-16] MEDS: ACCU-CHEK COMFORT CURVE STRIP VI SCH (22:21)
[2022-12-16] MEDS: InsuLIN REG 1unit/0.01ml Soln (100units/ml) SC SCH (22:26)
[2022-12-16] MEDS: MONTELUKAST SODIUM 10 MG TAB PO SCH (22:28)
[2022-12-17] VITALS (7 sets, daily range): BP systolic 127–169; BP diastolic 73–101
[2022-12-17 06:14] LABS: Basophils # (auto) 0 10 ^3/uL (0-0.2); Basophils % (auto) 0.6 % (0.0-2.0); Eosinophils # (auto) 0 10 ^3/uL (0-0.8); Hematocrit 45.1 % (36.0-46.0); Hemoglobin 14.7 g/dL (12.2-16.2); Lymphocytes # (auto) 0.5 10 ^3/uL (0.4-5.4); Lymphocytes % (auto) 9.4 % (10.0-50.0); Mean Corpuscular Hemoglobin 26.6 pg (28.0-32.0); Mean Corpuscular Hgb Conc. 32.5 g/dL (32.0-36.0); Mean Corpuscular Volume 81.7 fL (80.0-100.0); Monocytes # (auto) 0.1 10 ^3/uL (0-1.3); Neutrophils # (auto) 4.9 10 ^3/uL (1.6-8.6); Red Blood Cells 5.51 10^6/uL (4.0-5.20); White Blood Cell 5.5 10^3/uL (4.4-10.8)
[2022-12-17] MEDS: ACCU-CHEK COMFORT CURVE STRIP VI SCH ×4 (06:23→21:05)
[2022-12-17] MEDS: InsuLIN REG 1unit/0.01ml Soln (100units/ml) SC SCH ×4 (06:27→21:09)
[2022-12-17 06:42] LABS: BUN/Creatinine Ratio 14.7; Calcium 9.1 mg/dL (8.5-10.1); Potassium 4.4 mmol/L (3.5-5.1)
[2022-12-17] MEDS: ENOXAPARIN SOD 40 MG/0.4 ML SYRINGE SC SCH (10:03)
[2022-12-17] MEDS: HCTZ 25 MG TAB PO SCH (10:04)
[2022-12-17] MEDS: amLODIPine BESYLATE 5 MG TAB PO SCH (10:04)
[2022-12-17] MEDS: PANTOPRAZOLE 40 MG TAB PO SCH (10:04)
[2022-12-17] MEDS: MONTELUKAST SODIUM 10 MG TAB PO SCH (21:03)
[2022-12-18 05:00] VITALS: BP 117/73
[2022-12-18] MEDS: ACCU-CHEK COMFORT CURVE STRIP VI SCH ×2 (06:02→11:43)
[2022-12-18] MEDS: InsuLIN REG 1unit/0.01ml Soln (100units/ml) SC SCH ×2 (06:06→11:46)
[2022-12-18 08:00] VITALS: BP 117/68
[2022-12-18 08:44] VITALS: BP 117/68
[2022-12-18] MEDS: HCTZ 25 MG TAB PO SCH (09:27)
[2022-12-18] MEDS: amLODIPine BESYLATE 5 MG TAB PO SCH (09:27)
[2022-12-18] MEDS: ENOXAPARIN SOD 40 MG/0.4 ML SYRINGE SC SCH (09:28)
[2022-12-18] MEDS: PANTOPRAZOLE 40 MG TAB PO SCH (09:28)
[2022-12-18] MEDS ORDERED: AMLO-496 PO (11:26)
[2022-12-18 13:11] VITALS: BP 157/94
[2022-12-18 13:54] VITALS: BP 157/94
== END 2022-12-18 16:28 | disposition home or self-care (01) | DRG 189 ==
LOC: ER 14:44 → TELE 20:32 → TELE-CENTR 23:17
PROVIDERS: ADMIT Nurse Practitioner; ATTEND Internal Medicine
DX: J96.20 Acute and chronic respiratory failure, unspecified whether with hypoxia or hypercapnia (principal); J44.1 Chronic obstructive pulmonary disease with (acute) exacerbation; Z68.43 Body mass index [BMI] 50.0-59.9, adult; E11.9 Type 2 diabetes mellitus without complications; E66.01 Morbid (severe) obesity due to excess calories; I11.0 Hypertensive heart disease with heart failure; I50.9 Heart failure, unspecified; Z20.822 Contact with and (suspected) exposure to COVID-19; Z82.49 Family history of ischemic heart disease and other diseases of the circulatory system; Z83.3 Family history of diabetes mellitus; Z90.710 Acquired absence of both cervix and uterus; Z91.199 Patient's noncompliance with other medical treatment and regimen due to unspecified reason
CPT/HCPCS: 36415; 71045; 80048; 80053; 82962; 83880; 84484; 85025; 85610; 85730; 87426; 93005; 94640; G0378; J1815; J3490

== ENCOUNTER → 2023-01-04 | Outpatient (CLI) | payer OTHER, MEDICAID ==
[~2023-01-04] MED LIST changes: -AML5T PO; +AMLO-496 PO
[2023-01-04 10:40] LABS: Hemoglobin 14.8 g/dL (12.2-16.2); Mean Corpuscular Hemoglobin 26.4 pg (28.0-32.0); Mean Corpuscular Hgb Conc. 33.6 g/dL (32.0-36.0); Mean Corpuscular Volume 78.8 fL (80.0-100.0); Red Blood Cells 5.59 10^6/uL (4.0-5.20); Red Cell Distribution Width 16.1 % (11.8-14.3)
[2023-01-04 11:12] LABS: Urine Bacteria NONE SEEN /hpf (None Seen); Urine Blood Negative /uL (Negative); Urine Specific Gravity 1.012 (1.001-1.035); Urine WBC 1 /hpf (0 - 5)
[2023-01-04 11:37] LABS: Albumin 3.1 g/dL (3.4-5.0)
[2023-01-04 11:46] LABS: Bilirubin, Total 0.4 mg/dL (0.2-1.0); Total Protein 7.6 g/dL (6.4-8.2)
[2023-01-04 11:49] LABS: Micro Albumin 14.6 mg/L (0-30.0)
[2023-01-04 12:19] LABS: Basophils % (manual) 0 (0.0-2.0); Blast Cells 0; Metamyelocytes % 0; Myelocytes % 0; Promyelocytes % 0; Reactive Lymphocytes 0
[2023-01-04 17:03] LABS: Band Neutrophils % (manual) 2; Eosinophils % (manual) 4 (0-7); Lymphocytes % (manual) 49 (10.0-50.0); Monocytes % (manual) 5 (0-12)
== END | disposition home or self-care (01) ==
LOC: LAB 10:07
PROVIDERS: ATTEND Internal Medicine
DX: I10 Essential (primary) hypertension (principal); E11.9 Type 2 diabetes mellitus without complications
CPT/HCPCS: 36415; 80053; 80061; 81001; 82043; 82570; 83036; 84439; 84443; 85007; 85027

== ENCOUNTER → 2023-01-29 | Outpatient (CLI) | payer MEDICARE, MEDICAID ==
[2023-01-29 10:40] LABS: Basophils # (auto) 0.1 10 ^3/uL (0-0.2); Eosinophils # (auto) 0.1 10 ^3/uL (0-0.8); Lymphocytes # (auto) 1.7 10 ^3/uL (0.4-5.4); Monocytes # (auto) 0.4 10 ^3/uL (0-1.3); Neutrophils # (auto) 2.9 10 ^3/uL (1.6-8.6)
[2023-01-29 10:42] LABS: Eosinophils % (auto) 2.3 % (0.0-7.0); Hematocrit 46.6 % (36.0-46.0); Lymphocytes % (auto) 32.1 % (10.0-50.0); Mean Corpuscular Hemoglobin 26.1 pg (28.0-32.0); Mean Corpuscular Hgb Conc. 32.1 g/dL (32.0-36.0); Mean Corpuscular Volume 81.3 fL (80.0-100.0); Monocytes % (auto) 8.5 % (0.0-12.0); Neutrophils % (auto) 55.1 % (37.0-80.0); Nucleated Red Blood Cells % 0.3 %; Red Blood Cells 5.73 10^6/uL (4.0-5.20); Red Cell Distribution Width 16.5 % (11.8-14.3); White Blood Cell 5.2 10^3/uL (4.4-10.8)
[2023-01-29 10:51] LABS: Urine Bacteria FEW /hpf (None Seen); Urine Blood Negative /uL (Negative); Urine Specific Gravity 1.016 (1.001-1.035); Urine WBC 1 /hpf (0 - 5)
[2023-01-29 11:38] LABS: Potassium 4.3 mmol/L (3.5-5.1)
[2023-01-29 11:44] LABS: Albumin 3.2 g/dL (3.4-5.0); BUN/Creatinine Ratio 16.2 (10.0-20.0); Bilirubin, Total 0.7 mg/dL (0.2-1.0); Calcium 9.1 mg/dL (8.5-10.1); Total Protein 7.9 g/dL (6.4-8.2)
== END | disposition home or self-care (01) ==
LOC: LAB 10:16
PROVIDERS: ATTEND Internal Medicine
DX: E11.69 Type 2 diabetes mellitus with other specified complication (principal); E66.01 Morbid (severe) obesity due to excess calories
CPT/HCPCS: 36415; 80053; 81001; 85025

== ENCOUNTER → 2023-02-16 | Outpatient (CLI) | payer OTHER, MEDICAID ==
[2023-02-16 10:41] LABS: Basophils # (auto) 0.1 10 ^3/uL (0-0.2); Eosinophils # (auto) 0.1 10 ^3/uL (0-0.8); Hemoglobin 14.6 g/dL (12.2-16.2); Monocytes # (auto) 0.4 10 ^3/uL (0-1.3); White Blood Cell 4.8 10^3/uL (4.4-10.8)
[2023-02-16 10:44] LABS: Basophils % (auto) 1.5 % (0.0-2.0); Eosinophils % (auto) 1.3 % (0.0-7.0); Hematocrit 45.8 % (36.0-46.0); Lymphocytes # (auto) 1.8 10 ^3/uL (0.4-5.4); Lymphocytes % (auto) 38.2 % (10.0-50.0); Mean Corpuscular Hemoglobin 26.2 pg (28.0-32.0); Mean Corpuscular Hgb Conc. 31.9 g/dL (32.0-36.0); Mean Corpuscular Volume 82.2 fL (80.0-100.0); Monocytes % (auto) 7.8 % (0.0-12.0); Neutrophils # (auto) 2.5 10 ^3/uL (1.6-8.6); Neutrophils % (auto) 51.2 % (37.0-80.0); Nucleated Red Blood Cells % 0.1 %; Red Blood Cells 5.57 10^6/uL (4.0-5.20); Red Cell Distribution Width 16.4 % (11.8-14.3)
[2023-02-16 10:48] LABS: Partial Thromboplastin Time 25.2 sec (24.6-33.4)
[2023-02-16 11:02] LABS: Urine Bacteria FEW /hpf (None Seen); Urine Blood Negative /uL (Negative); Urine Specific Gravity 1.014 (1.001-1.035); Urine WBC 2 /hpf (0 - 5)
[2023-02-16 11:09] LABS: Albumin 3.1 g/dL (3.4-5.0); Calcium 8.7 mg/dL (8.5-10.1); Potassium 3.8 mmol/L (3.5-5.1)
[2023-02-16 11:12] LABS: BUN/Creatinine Ratio 17.1 (10.0-20.0); Bilirubin, Total 0.5 mg/dL (0.2-1.0); Total Protein 7.3 g/dL (6.4-8.2)
== END | disposition home or self-care (01) ==
LOC: LAB 10:08
PROVIDERS: ATTEND Internal Medicine
DX: H11.002 Unspecified pterygium of left eye (principal)
CPT/HCPCS: 36415; 80053; 81001; 85025; 85610; 85730

== ENCOUNTER 2023-04-20 23:28 | Inpatient (IN) | payer OTHER, MEDICAID ==
[~2023-04-20] VITALS: Ht 170.2 cm; Wt 132.8 kg
[~2023-04-20 23:28] MED LIST changes: -AMLO-496 PO; +AMLO1TAB23 PO
[2023-04-21 02:43] VITALS: BP 141/84
[2023-04-21] MEDS ORDERED: ACETAMINOPHEN 325 MG TAB PO PRN (03:45)
[2023-04-21] MEDS ORDERED: DEXTROSE (50%) 50ML SYRG IV PRN (03:45)
[2023-04-21] MEDS ORDERED: ONDANSETRON HCL 4 MG/2 ML VIAL IV PRN (03:45)
[2023-04-21] MEDS ORDERED: MORPHINE SULFATE INJ 2 MG/ml SYRG IV PRN (03:45)
[2023-04-21] MEDS ORDERED: cloNIDine HCL 0.1 MG TAB PO PRN (03:45)
[2023-04-21] MEDS ORDERED: NITROGLYCERIN 0.4 MG SL TAB SL PRN (03:45)
[2023-04-21 05:20] VITALS: BP 151/82
[2023-04-21] MEDS: IPRATROPIUM BROM 0.5 MG/2.5ML INH SOL NEB SCH ×2 (06:00→12:54)
[2023-04-21] MEDS ORDERED: ALBUTEROL SULF 2.5 MG/0.5ML(0.5%) NEB SOLN NEB SCH ×2 (06:00→12:00)
[2023-04-21 06:21] LABS: Basophils # (auto) 0 10 ^3/uL (0-0.2); Basophils % (auto) 0.2 % (0.0-2.0); Eosinophils # (auto) 0 10 ^3/uL (0-0.8); Eosinophils % (auto) 0.1 % (0.0-7.0); Hematocrit 44.4 % (36.0-46.0); Hemoglobin 14.5 g/dL (12.2-16.2); Lymphocytes # (auto) 0.5 10 ^3/uL (0.4-5.4); Mean Corpuscular Hemoglobin 26.7 pg (28.0-32.0); Mean Corpuscular Hgb Conc. 32.6 g/dL (32.0-36.0); Monocytes # (auto) 0 10 ^3/uL (0-1.3); Monocytes % (auto) 1.1 % (0.0-12.0); Neutrophils # (auto) 3.1 10 ^3/uL (1.6-8.6); Neutrophils % (auto) 84.6 % (37.0-80.0); Red Blood Cells 5.42 10^6/uL (4.0-5.20); Red Cell Distribution Width 15.9 % (11.8-14.3); White Blood Cell 3.7 10^3/uL (4.4-10.8)
[2023-04-21] MEDS: ACCU-CHEK COMFORT CURVE STRIP VI SCH ×2 (06:23→11:30)
[2023-04-21] MEDS: InsuLIN REG 1unit/0.01ml Soln (100units/ml) SC SCH ×2 (06:24→11:30)
[2023-04-21 06:31] LABS: Albumin 3.3 g/dL (3.4-5.0); Calcium 8.8 mg/dL (8.5-10.1); Potassium 3.9 mmol/L (3.5-5.1)
[2023-04-21 06:36] LABS: Bilirubin, Total 0.2 mg/dL (0.2-1.0); Total Protein 8.5 g/dL (6.4-8.2)
[2023-04-21 09:00] VITALS: BP 170/93
[2023-04-21] MEDS ORDERED: LISINOPRIL 20 MG TAB PO SCH (10:00)
[2023-04-21] MEDS ORDERED: HCTZ 25 MG TAB PO SCH (10:00)
[2023-04-21] MEDS ORDERED: AZITHROMYCIN 250 MG TAB PO SCH (10:00)
[2023-04-21] MEDS ORDERED: ENOXAPARIN SOD 40 MG/0.4 ML SYRINGE SC SCH (10:00)
[2023-04-21] MEDS ORDERED: PANTOPRAZOLE 40 MG TAB PO SCH (10:00)
[2023-04-21] MEDS ORDERED: FUROSEMIDE 20 MG/2 ML VIAL IV ONE (10:00)
[2023-04-21] MEDS ORDERED: BUDESONIDE (INHALATION) 0.5 MG/2 ML NEB NEB SCH (10:00)
[2023-04-21 13:00] VITALS: BP 146/58
[2023-04-21 13:56] VITALS: BP 170/93
[2023-04-21 17:00] VITALS: BP 130/73
[2023-04-21] MEDS ORDERED: MONTELUKAST SODIUM 10 MG TAB PO SCH (22:00)
[2023-04-21] MEDS ORDERED: ATORVASTATIN 20 MG TAB PO SCH (22:00)
== END 2023-04-21 17:00 | disposition home or self-care (01) | DRG 189 ==
LOC: TELE-WESTW 04-21 01:38 → UNDOADMIN 04-21 01:38 → TELE-WESTW 04-21 03:39
PROVIDERS: ADMIT Nurse Practitioner; ATTEND Internal Medicine
DX: J96.20 Acute and chronic respiratory failure, unspecified whether with hypoxia or hypercapnia (principal); J45.901 Unspecified asthma with (acute) exacerbation; Z68.42 Body mass index [BMI] 45.0-49.9, adult; Z20.822 Contact with and (suspected) exposure to COVID-19; E11.9 Type 2 diabetes mellitus without complications; E66.01 Morbid (severe) obesity due to excess calories; I11.0 Hypertensive heart disease with heart failure; I50.9 Heart failure, unspecified; J44.9 Chronic obstructive pulmonary disease, unspecified; Z90.710 Acquired absence of both cervix and uterus
CPT/HCPCS: 36415; 36600; 71045; 80053; 82805; 82962; 83036; 85025; 85379; 87081; 87426; 87804; 93306; 94640; G0378; J1815

== ENCOUNTER 2023-05-25 22:45 | Inpatient (IN) | payer OTHER, MEDICAID ==
[~2023-05-25] VITALS: Ht 170.2 cm; Wt 136.5 kg
[2023-05-25 23:10] VITALS: PULSE 96; RESP 22; O2SAT 95
[2023-05-25] MEDS ORDERED: DexAMETHasone SOD PHOS 10MG/1ML VIAL INJ IM ONE (23:30)
[2023-05-25] MEDS ORDERED: IPRATROPIUM BROM 0.5 MG/2.5ML INH SOL NEB ONE (23:30)
[2023-05-25] MEDS ORDERED: ALBUTEROL SULF 2.5 MG/0.5ML(0.5%) NEB SOLN NEB ONE (23:30)
[2023-05-25 23:41] LABS: Basophils # (auto) 0 10 ^3/uL (0-0.2); Eosinophils # (auto) 0.1 10 ^3/uL (0-0.8); Hemoglobin 13.8 g/dL (12.2-16.2); Lymphocytes # (auto) 1.9 10 ^3/uL (0.4-5.4); Monocytes # (auto) 0.3 10 ^3/uL (0-1.3); Neutrophils # (auto) 1.9 10 ^3/uL (1.6-8.6); Nucleated Red Blood Cells % 0.3 %; White Blood Cell 4.3 10^3/uL (4.4-10.8)
[2023-05-25 23:43] LABS: Basophils % (auto) 0.9 % (0.0-2.0); Eosinophils % (auto) 2.5 % (0.0-7.0); Lymphocytes % (auto) 44.5 % (10.0-50.0); Mean Corpuscular Hemoglobin 26.5 pg (28.0-32.0); Mean Corpuscular Hgb Conc. 32.1 g/dL (32.0-36.0); Mean Corpuscular Volume 82.8 fL (80.0-100.0); Monocytes % (auto) 7.3 % (0.0-12.0); Neutrophils % (auto) 44.8 % (37.0-80.0); Red Blood Cells 5.19 10^6/uL (4.0-5.20); Red Cell Distribution Width 16.6 % (11.8-14.3)
[2023-05-25 23:58] LABS: Calcium 8.4 mg/dL (8.5-10.1)
[2023-05-26 00:02] LABS: BUN/Creatinine Ratio 5.6 (10.0-20.0); Bilirubin, Total 0.2 mg/dL (0.2-1.0); Total Protein 7.6 g/dL (6.4-8.2)
[2023-05-26] MEDS ORDERED: cefTRIAXone 1GM/50ML D5W 50 ML IV ONE (03:30)
[2023-05-26 07:25] VITALS: PULSE 102; RESP 19; TEMP 98.2; O2SAT 96
[2023-05-26] MEDS ORDERED: ALBUTEROL SULF 2.5 MG/0.5ML(0.5%) NEB SOLN NEB ONE (09:30)
[2023-05-26] MEDS ORDERED: AZITHROMYCIN 500MG/ 250ML 250 ML IV ONE (09:30)
[2023-05-26] MEDS ORDERED: IPRATROPIUM BROM 0.5 MG/2.5ML INH SOL NEB ONE (09:30)
[2023-05-26] MEDS ORDERED: MONT10TA23 PO (11:07)
[2023-05-26] MEDS ORDERED: FAMO-12 PO (11:07)
[2023-05-26] MEDS ORDERED: HYDROcodone-ACET 5/325MG TAB PO PRN (11:15)
[2023-05-26] MEDS ORDERED: IPRATROPIUM BROM 0.5 MG/2.5ML INH SOL NEB PRN (11:15)
[2023-05-26] MEDS ORDERED: POTASSIUM EFFERVESENT TAB 25 MEQ PO ONE (11:15)
[2023-05-26] MEDS ORDERED: ALBUTEROL SULF 2.5 MG/0.5ML(0.5%) NEB SOLN NEB PRN (11:15)
[2023-05-26] MEDS ORDERED: DOCUSATE SOD 100 MG CAP PO PRN (11:15)
[2023-05-26] MEDS ORDERED: ONDANSETRON HCL 4 MG/2 ML VIAL IV PRN (11:15)
[2023-05-26] MEDS ORDERED: ACETAMINOPHEN 325 MG TAB PO PRN (11:15)
[2023-05-26] MEDS ORDERED: ALBUTEROL SULF 2.5 MG/0.5ML(0.5%) NEB SOLN NEB SCH (12:00)
[2023-05-26] MEDS ORDERED: IPRATROPIUM BROM 0.5 MG/2.5ML INH SOL NEB SCH (12:00)
[2023-05-26] MEDS ORDERED: DEXTROSE (50%) 50ML SYRG IV PRN (12:15)
[2023-05-26 13:02] VITALS: PULSE 90; RESP 18; O2SAT 99
[2023-05-26 13:12] VITALS: PULSE 91; RESP 18; O2SAT 100
[2023-05-26] MEDS ORDERED: SODIUM CHLOR 0.9% PF (SALINE LOCK) 10ML VIAL/SYR IV SCH (14:00)
[2023-05-26 14:59] VITALS: BP 160/93; PULSE 112; RESP 24; O2SAT 94
[2023-05-26] MEDS ORDERED: amLODIPine BESYLATE 5 MG TAB PO SCH ×2 (16:30→17:00)
[2023-05-26] MEDS ORDERED: hydrALAZINE HCL 20 MG/ML VL IV PRN ×2 (16:45)
[2023-05-26] MEDS ORDERED: ACCU-CHEK COMFORT CURVE STRIP VI SCH (17:00)
[2023-05-26] MEDS ORDERED: HCTZ 25 MG TAB PO SCH (17:00)
[2023-05-26] MEDS ORDERED: InsuLIN REG 1unit/0.01ml Soln (100units/ml) SC SCH (17:00)
[2023-05-26] MEDS ORDERED: METF-370 PO (17:11)
[2023-05-26] MEDS ORDERED: FURO40TA4 PO (17:11)
[2023-05-26] MEDS ORDERED: ATOR40TA52 PO (17:11)
[2023-05-26] MEDS ORDERED: SEMA4INJ SC (17:11)
[2023-05-26 18:01] VITALS: BP 160/89; PULSE 91; RESP 20; O2SAT 92
[2023-05-27] MEDS ORDERED: ENOXAPARIN SOD 40 MG/0.4 ML SYRINGE SC SCH (10:00)
[2023-05-27] MEDS ORDERED: cefTRIAXone 1GM/50ML D5W 50 ML IV SCH (10:00)
[2023-05-27] MEDS ORDERED: FAMOTIDINE 20 MG TAB PO SCH (10:00)
[2023-05-27] MEDS ORDERED: predniSONE 20 MG TAB PO SCH (10:00)
[2023-05-27] MEDS ORDERED: AZITHROMYCIN 500MG/ 250ML 250 ML IV SCH (10:00)
== END 2023-05-26 18:43 | disposition left against medical advice (07) | DRG 190 ==
LOC: EDBD 22:45 → ER 22:45 → TELE 05-26 11:23
PROVIDERS: ADMIT Internal Medicine Pulmonary Disease; ATTEND Internal Medicine Pulmonary Disease
DX: J44.0 Chronic obstructive pulmonary disease with (acute) lower respiratory infection (principal); J15.9 Unspecified bacterial pneumonia; J45.901 Unspecified asthma with (acute) exacerbation; E11.9 Type 2 diabetes mellitus without complications; J44.1 Chronic obstructive pulmonary disease with (acute) exacerbation; Z53.29 Procedure and treatment not carried out because of patient's decision for other reasons; E87.6 Hypokalemia; I11.0 Hypertensive heart disease with heart failure; I50.9 Heart failure, unspecified; Z90.710 Acquired absence of both cervix and uterus
CPT/HCPCS: 36415; 36600; 71045; 80053; 82805; 82962; 83605; 83735; 83880; 84484; 85025; 85379; 87040; 93005; 94640; 96365; 96367; 96372; 96375; G0378; J0696; J1100

== ENCOUNTER → 2023-06-07 | Outpatient (CLI) | payer OTHER, MEDICAID ==
[~2023-06-07] MED LIST changes: -AMOX500T86 PO; +ATOR40TA52 PO; +FURO40TA4 PO; +METF-370 PO; -PRED20TA2 PO; +SEMA4INJ SC
[2023-06-07 12:06] LABS: Albumin 3.3 g/dL (3.4-5.0); BUN/Creatinine Ratio 7.8 (10.0-20.0); Potassium 4.2 mmol/L (3.5-5.1)
[2023-06-07 12:21] LABS: Bilirubin, Total 0.5 mg/dL (0.2-1.0); Total Protein 7.9 g/dL (6.4-8.2)
== END | disposition home or self-care (01) ==
LOC: LAB 10:28
PROVIDERS: ATTEND Internal Medicine
DX: I10 Essential (primary) hypertension (principal); E11.65 Type 2 diabetes mellitus with hyperglycemia; E78.5 Hyperlipidemia, unspecified
CPT/HCPCS: 36415; 80053; 80061; 83036

== ENCOUNTER 2023-06-12 23:13 | Inpatient (IN) | payer OTHER, MEDICAID ==
[~2023-06-12] VITALS: Ht 165.1 cm; Wt 132.6 kg
[2023-06-13] VITALS (10 sets, daily range): BP systolic 150–187; BP diastolic 83–108; PULSE 100–109; RESP 16–70; TEMP 36.6; O2SAT 94–99
[2023-06-13] MEDS ORDERED: METF-1145 PO (05:45)
[2023-06-13] MEDS ORDERED: MORPHINE SULFATE INJ 2 MG/ml SYRG IV PRN (07:30)
[2023-06-13] MEDS ORDERED: NITROGLYCERIN 0.4 MG SL TAB SL PRN (07:30)
[2023-06-13] MEDS ORDERED: FAMOTIDINE 20 MG TAB PO SCH (10:00)
[2023-06-13] MEDS ORDERED: amLODIPine BESYLATE 5 MG TAB PO ONE (10:00)
[2023-06-13] MEDS ORDERED: amLODIPine BESYLATE 5 MG TAB PO SCH (10:00)
[2023-06-13] MEDS ORDERED: FUROSEMIDE 40 MG TAB PO SCH (10:00)
[2023-06-13 11:27] LABS: Basophils # (auto) 0 10 ^3/uL (0-0.2); Eosinophils # (auto) 0 10 ^3/uL (0-0.8); Lymphocytes # (auto) 0.7 10 ^3/uL (0.4-5.4); Monocytes # (auto) 0.1 10 ^3/uL (0-1.3); Neutrophils # (auto) 4.1 10 ^3/uL (1.6-8.6); Red Cell Distribution Width 17.1 % (11.8-14.3); White Blood Cell 4.9 10^3/uL (4.4-10.8)
[2023-06-13 11:29] LABS: Basophils % (auto) 0.3 % (0.0-2.0); Hematocrit 45.5 % (36.0-46.0); Hemoglobin 14.8 g/dL (12.2-16.2); Lymphocytes % (auto) 13.7 % (10.0-50.0); Mean Corpuscular Hemoglobin 26.8 pg (28.0-32.0); Mean Corpuscular Hgb Conc. 32.5 g/dL (32.0-36.0); Mean Corpuscular Volume 82.5 fL (80.0-100.0); Monocytes % (auto) 1.1 % (0.0-12.0); Neutrophils % (auto) 84.9 % (37.0-80.0); Nucleated Red Blood Cells % 0.3 %; Red Blood Cells 5.51 10^6/uL (4.0-5.20)
[2023-06-13 11:48] LABS: Albumin 3.3 g/dL (3.4-5.0); BUN/Creatinine Ratio 7.7 (10.0-20.0); Potassium 4.4 mmol/L (3.5-5.1)
[2023-06-13 11:51] LABS: Bilirubin, Total 0.3 mg/dL (0.2-1.0); Total Protein 8.1 g/dL (6.4-8.2)
[2023-06-13] MEDS ORDERED: ALBUTEROL SULF 2.5 MG/0.5ML(0.5%) NEB SOLN NEB SCH (12:00)
[2023-06-13] MEDS ORDERED: IPRATROPIUM BROM 0.5 MG/2.5ML INH SOL NEB SCH (12:00)
[2023-06-13] MEDS ORDERED: METOPROLOL TARTRATE 50 MG TAB PO ONE (15:45)
[2023-06-13] MEDS ORDERED: METOPROLOL TARTRATE 50 MG TAB PO SCH (22:00)
[2023-06-13] MEDS ORDERED: MONTELUKAST SODIUM 10 MG TAB PO SCH (22:00)
== END 2023-06-13 18:20 | disposition home or self-care (01) | DRG 189 ==
LOC: EAST 06-13 04:25 → TELE-EAST 06-13 06:24
PROVIDERS: ADMIT Nurse Practitioner Family; ATTEND Nurse Practitioner Family
DX: J96.00 Acute respiratory failure, unspecified whether with hypoxia or hypercapnia (principal); I50.30 Unspecified diastolic (congestive) heart failure; Z68.42 Body mass index [BMI] 45.0-49.9, adult; I11.0 Hypertensive heart disease with heart failure; J44.9 Chronic obstructive pulmonary disease, unspecified; I16.0 Hypertensive urgency; E11.9 Type 2 diabetes mellitus without complications; E66.01 Morbid (severe) obesity due to excess calories; F10.10 Alcohol abuse, uncomplicated
CPT/HCPCS: 36415; 71045; 80053; 84443; 85025; 87081; 94640; G0378

== ENCOUNTER 2023-07-09 02:11 | Inpatient (IN) | payer OTHER, MEDICAID ==
[2023-07-09] VITALS (15 sets, daily range): BP systolic 129–149; BP diastolic 81–88; PULSE 94–118; RESP 18–28; TEMP 97.5–98.7; O2SAT 92–99
[~2023-07-09] VITALS: Ht 177.8 cm; Wt 114.5 kg
[~2023-07-09 02:11] MED LIST changes: +METF-1145 PO
[2023-07-09] MEDS ORDERED: methylPREDNISolone SOD SUCC 40 MG/ML VL IV ONE (02:45)
[2023-07-09] MEDS ORDERED: BUDESONIDE (INHALATION) 0.5 MG/2 ML NEB NEB ONE (02:45)
[2023-07-09] MEDS ORDERED: ALBUTEROL SULF 2.5 MG/0.5ML(0.5%) NEB SOLN NEB ONE (02:45)
[2023-07-09] MEDS ORDERED: DexAMETHasone SOD PHOS 10MG/1ML VIAL INJ IV ONE (02:45)
[2023-07-09] MEDS ORDERED: IPRATROPIUM BROM 0.5 MG/2.5ML INH SOL NEB ONE (02:45)
[2023-07-09 03:06] LABS: Basophils # (auto) 0.1 10 ^3/uL (0-0.2); Basophils % (auto) 1.8 % (0.0-2.0); Eosinophils # (auto) 0.2 10 ^3/uL (0-0.8); Eosinophils % (auto) 3.7 % (0.0-7.0); Hematocrit 44.4 % (36.0-46.0); Hemoglobin 14.5 g/dL (12.2-16.2); Lymphocytes # (auto) 2.2 10 ^3/uL (0.4-5.4); Lymphocytes % (auto) 40.6 % (10.0-50.0); Mean Corpuscular Hemoglobin 27.4 pg (28.0-32.0); Mean Corpuscular Hgb Conc. 32.8 g/dL (32.0-36.0); Mean Corpuscular Volume 83.5 fL (80.0-100.0); Monocytes # (auto) 0.4 10 ^3/uL (0-1.3); Monocytes % (auto) 7.6 % (0.0-12.0); Neutrophils # (auto) 2.5 10 ^3/uL (1.6-8.6); Neutrophils % (auto) 46.3 % (37.0-80.0); Nucleated Red Blood Cells % 0.2 %; Red Blood Cells 5.32 10^6/uL (4.0-5.20); Red Cell Distribution Width 16.5 % (11.8-14.3); White Blood Cell 5.5 10^3/uL (4.4-10.8)
[2023-07-09 03:07] LABS: Base Excess -4.9 mmol/L (-2.0-2.0)
[2023-07-09 03:22] LABS: INR 1.03 (0.9-1.15); Partial Thromboplastin Time 27.1 SEC (24.5-34.5); Prothrombin Time 10.8 sec (9.3-11.8)
[2023-07-09] MEDS ORDERED: FUROSEMIDE 40 MG/4 ML VIAL IV ONE (03:45)
[2023-07-09 03:52] LABS: Alanine Aminotransferase 16 U/L (7-40); Albumin 4.3 g/dL (3.2-4.8); Alkaline Phosphatase 78 U/L (46-116); Anion Gap 11 (5-15); Aspartate Aminotransferase 15 U/L (13-40); Bilirubin, Total 0.3 mg/dL (0.2-1.0); Carbon Dioxide 19 mmol/L (20-30); Chloride 103 mmol/L (98-107); Glucose 163 mg/dL (74-106); Potassium 3.3 mmol/L (3.5-5.1); Sodium 133 mmol/L (136-145); Total Protein 7.4 g/dL (5.7-8.2)
[2023-07-09 03:54] LABS: BUN/Creatinine Ratio 8.3 (10.0-20.0); Blood Urea Nitrogen < 5 mg/dL (9-23)
[2023-07-09] MEDS ORDERED: LEVALBUTEROL HCL 1.25 MG/3 ML NEB NEB SCH (06:00)
[2023-07-09 06:11] LABS: COVID19 ANTIGEN SOFIA FIA NEGATIVE (NEGATIVE); Rapid Influenza A Negative (Negative); Rapid Influenza B Negative (Negative)
[2023-07-09] MEDS ORDERED: DEXTROSE (50%) 50ML SYRG IV PRN (10:30)
[2023-07-09] MEDS ORDERED: DOCUSATE SOD 100 MG CAP PO PRN (10:30)
[2023-07-09] MEDS ORDERED: TEMAZEPAM 15 MG CAP PO PRN (10:30)
[2023-07-09] MEDS ORDERED: MORPHINE SULFATE INJ 2 MG/ml SYRG IV PRN (10:30)
[2023-07-09] MEDS ORDERED: ONDANSETRON HCL 4 MG/2 ML VIAL IV PRN (10:30)
[2023-07-09] MEDS ORDERED: POTASSIUM EFFERVESENT TAB 25 MEQ PO ONE (10:30)
[2023-07-09] MEDS: InsuLIN REG 1unit/0.01ml Soln (100units/ml) SC SCH ×2 (11:30→17:14)
[2023-07-09] MEDS: ACCU-CHEK COMFORT CURVE STRIP VI SCH ×3 (11:39→21:11)
[2023-07-09] MEDS: IPRATROPIUM BROM 0.5 MG/2.5ML INH SOL NEB SCH ×2 (13:46→18:25)
[2023-07-09] MEDS: LEVALBUTEROL HCL 1.25 MG/3 ML NEB NEB SCH ×2 (13:47→18:25)
[2023-07-09] MEDS: methylPREDNISolone SOD SUCC 125 MG/2 ML VL IV SCH ×2 (14:00→21:11)
[2023-07-09] MEDS: FAMOTIDINE 20 MG TAB PO SCH (21:07)
[2023-07-09] MEDS ORDERED: MONTELUKAST SODIUM 10 MG TAB PO SCH (22:00)
[2023-07-09] MEDS ORDERED: InsuLIN REG 1unit/0.01ml Soln (100units/ml) SC SCH (22:00)
[2023-07-09] MEDS ORDERED: ATORVASTATIN 20 MG TAB PO SCH (22:00)
[2023-07-10] VITALS (12 sets, daily range): BP systolic 121–132; BP diastolic 69–79; PULSE 71–107; RESP 14–18; TEMP 36.6; O2SAT 97–99
[2023-07-10] MEDS: LEVALBUTEROL HCL 1.25 MG/3 ML NEB NEB SCH ×2 (00:27→06:34)
[2023-07-10] MEDS: IPRATROPIUM BROM 0.5 MG/2.5ML INH SOL NEB SCH ×2 (00:27→06:34)
[2023-07-10] MEDS: methylPREDNISolone SOD SUCC 125 MG/2 ML VL IV SCH (06:22)
[2023-07-10] MEDS: InsuLIN REG 1unit/0.01ml Soln (100units/ml) SC SCH (06:24)
[2023-07-10] MEDS: ACCU-CHEK COMFORT CURVE STRIP VI SCH (06:28)
[2023-07-10 07:01] LABS: Basophils # (auto) 0 10 ^3/uL (0-0.2); Eosinophils # (auto) 0 10 ^3/uL (0-0.8); Hemoglobin 13.7 g/dL (12.2-16.2); Lymphocytes # (auto) 0.6 10 ^3/uL (0.4-5.4); Mean Corpuscular Volume 82.6 fL (80.0-100.0); Monocytes # (auto) 0.3 10 ^3/uL (0-1.3)
[2023-07-10 07:04] LABS: Basophils % (auto) 0.3 % (0.0-2.0); Hematocrit 42.6 % (36.0-46.0); Lymphocytes % (auto) 6.8 % (10.0-50.0); Mean Corpuscular Hemoglobin 26.6 pg (28.0-32.0); Mean Corpuscular Hgb Conc. 32.2 g/dL (32.0-36.0); Monocytes % (auto) 3.3 % (0.0-12.0); Neutrophils # (auto) 7.4 10 ^3/uL (1.6-8.6); Neutrophils % (auto) 89.6 % (37.0-80.0); Red Blood Cells 5.15 10^6/uL (4.0-5.20); Red Cell Distribution Width 17.2 % (11.8-14.3); White Blood Cell 8.3 10^3/uL (4.4-10.8)
[2023-07-10 07:21] LABS: Alanine Aminotransferase 18 U/L (7-40); Albumin 4.2 g/dL (3.2-4.8); Alkaline Phosphatase 73 U/L (46-116); Anion Gap 10 (5-15); Aspartate Aminotransferase 10 U/L (13-40); BUN/Creatinine Ratio 14.3 (10.0-20.0); Blood Urea Nitrogen 11 mg/dL (9-23); Calcium 9.3 mg/dL (8.7-10.4); Carbon Dioxide 23 mmol/L (20-30); Chloride 104 mmol/L (98-107); Glucose 287 mg/dL (74-106); Potassium 4.5 mmol/L (3.5-5.1); Sodium 137 mmol/L (136-145)
[2023-07-10 07:22] LABS: Bilirubin, Total 0.4 mg/dL (0.2-1.0); Total Protein 7.2 g/dL (5.7-8.2)
[2023-07-10] MEDS: FAMOTIDINE 20 MG TAB PO SCH (09:32)
[2023-07-10] MEDS ORDERED: amLODIPine BESYLATE 5 MG TAB PO SCH (10:00)
[2023-07-10] MEDS ORDERED: FUROSEMIDE 40 MG TAB PO SCH (10:00)
[2023-07-10] MEDS ORDERED: AZITTAB PO (11:25)
[2023-07-10] MEDS ORDERED: METH4PAK PO (11:25)
[2023-07-10] MEDS ORDERED: ALBU0.08 HHN (11:25)
== END 2023-07-10 12:01 | disposition home or self-care (01) | DRG 189 ==
LOC: ER 02:11 → EDBD 02:11 → TELE 10:29 → TELE-WESTW 15:50
PROVIDERS: ADMIT Nurse Practitioner Family; ATTEND Nurse Practitioner Family
DX: J96.21 Acute and chronic respiratory failure with hypoxia (principal); E87.1 Hypo-osmolality and hyponatremia; I50.32 Chronic diastolic (congestive) heart failure; J44.0 Chronic obstructive pulmonary disease with (acute) lower respiratory infection; J44.1 Chronic obstructive pulmonary disease with (acute) exacerbation; J20.9 Acute bronchitis, unspecified; E66.01 Morbid (severe) obesity due to excess calories; E87.6 Hypokalemia; R00.0 Tachycardia, unspecified; F10.10 Alcohol abuse, uncomplicated; Z20.822 Contact with and (suspected) exposure to COVID-19; E11.9 Type 2 diabetes mellitus without complications; I11.0 Hypertensive heart disease with heart failure; Z77.22 Contact with and (suspected) exposure to environmental tobacco smoke (acute) (chronic); Z79.899 Other long term (current) drug therapy; Z80.3 Family history of malignant neoplasm of breast; Z82.49 Family history of ischemic heart disease and other diseases of the circulatory system; Z83.3 Family history of diabetes mellitus; Z90.710 Acquired absence of both cervix and uterus; Z68.36 Body mass index [BMI] 36.0-36.9, adult
CPT/HCPCS: 36415; 36600; 71045; 80053; 82805; 82962; 83880; 84484; 85025; 85379; 85610; 85730; 87426; 87804; 94640; 96374; 96375; G0378; J1100; J1815

== ENCOUNTER → 2023-08-26 | Outpatient (CLI) | payer OTHER, MEDICAID ==
[~2023-08-26] MED LIST changes: +ALBU0.08 HHN; +AZITTAB PO; +METH4PAK PO
[2023-08-26 15:48] LABS: Base Excess -0.3 mmol/L (-2.0-2.0)
== END | disposition home or self-care (01) ==
LOC: RT 14:36
PROVIDERS: ATTEND Nurse Practitioner Gerontology
DX: I10 Essential (primary) hypertension (principal)
CPT/HCPCS: 36600; 82805

== ENCOUNTER → 2023-09-20 | Outpatient (CLI) | payer OTHER, MEDICAID ==
[2023-09-20 07:34] LABS: Basophils # (auto) 0 10 ^3/uL (0-0.2); Eosinophils # (auto) 0.1 10 ^3/uL (0-0.8); Eosinophils % (auto) 1.8 % (0.0-7.0); Monocytes # (auto) 0.4 10 ^3/uL (0-1.3); Neutrophils # (auto) 2.2 10 ^3/uL (1.6-8.6); White Blood Cell 3.7 10^3/uL (4.4-10.8)
[2023-09-20 07:36] LABS: Basophils % (auto) 1.1 % (0.0-2.0); Hematocrit 45.3 % (36.0-46.0); Hemoglobin 14.7 g/dL (12.2-16.2); Mean Corpuscular Hemoglobin 26.8 pg (28.0-32.0); Mean Corpuscular Hgb Conc. 32.3 g/dL (32.0-36.0); Mean Corpuscular Volume 82.8 fL (80.0-100.0); Neutrophils % (auto) 59.1 % (37.0-80.0); Nucleated Red Blood Cells % 0.2 %; Red Blood Cells 5.47 10^6/uL (4.0-5.20); Red Cell Distribution Width 15.6 % (11.8-14.3)
[2023-09-20 07:49] LABS: Alanine Aminotransferase 22 U/L (7-40); Albumin 4.2 g/dL (3.2-4.8); Alkaline Phosphatase 73 U/L (46-116); Anion Gap 9 (5-15); Aspartate Aminotransferase 31 U/L (13-40); BUN/Creatinine Ratio 8.2 (10.0-20.0); Blood Urea Nitrogen 6 mg/dL (9-23); Calcium 9.3 mg/dL (8.5-10.1); Carbon Dioxide 27 mmol/L (20-30); Chloride 105 mmol/L (98-107); Glucose 134 mg/dL (74-106); LDL Cholesterol 82 mg/dL (< 100); Potassium 3.7 mmol/L (3.5-5.1); Sodium 141 mmol/L (136-145); Triglycerides 91 mg/dL (< 150)
[2023-09-20 07:50] LABS: Bilirubin, Total 0.4 mg/dL (0.2-1.0); Cholesterol 139 mg/dL (< 200); HDL Cholesterol 44 mg/dL (40-59); Total Protein 7.3 g/dL (5.7-8.2)
[2023-09-20 08:11] LABS: Magnesium 1.8 mg/dL (1.6-2.6)
[2023-09-20 11:25] LABS: T3 Total 1.3 ng/mL (0.60-1.81)
[2023-09-20 11:26] LABS: Free T4 (Free Thyroxine) 1.08 ng/dL (0.89-1.76)
== END | disposition home or self-care (01) ==
LOC: LAB 07:05
PROVIDERS: ATTEND Nurse Practitioner Gerontology
DX: Z00.01 Encounter for general adult medical examination with abnormal findings (principal)
CPT/HCPCS: 36415; 80053; 80061; 83036; 83735; 84439; 84443; 84480; 85025

== ENCOUNTER 2023-10-05 13:48 | Emergency (ER) | payer OTHER, MEDICAID ==
[~2023-10-05] VITALS: Ht 162.6 cm; Wt 129.1 kg
[2023-10-05 14:13] VITALS: BP 193/70; RESP 18; O2SAT 96
[2023-10-05 14:15] VITALS: PULSE 92
[2023-10-05] MEDS ORDERED: amLODIPine BESYLATE 5 MG TAB PO ONE (14:15)
[2023-10-05 14:37] LABS: Basophils # (auto) 0.1 10 ^3/uL (0-0.2); Basophils % (auto) 1.1 % (0.0-2.0); Eosinophils # (auto) 0.1 10 ^3/uL (0-0.8); Hemoglobin 14.7 g/dL (12.2-16.2); Lymphocytes # (auto) 1.8 10 ^3/uL (0.4-5.4); Monocytes # (auto) 0.4 10 ^3/uL (0-1.3); Nucleated Red Blood Cells % 0.1 %
[2023-10-05 14:38] LABS: Eosinophils % (auto) 2.3 % (0.0-7.0); Hematocrit 45.7 % (36.0-46.0); Lymphocytes % (auto) 34.7 % (10.0-50.0); Mean Corpuscular Hemoglobin 26.6 pg (28.0-32.0); Mean Corpuscular Hgb Conc. 32.1 g/dL (32.0-36.0); Mean Corpuscular Volume 82.8 fL (80.0-100.0); Monocytes % (auto) 8.2 % (0.0-12.0); Neutrophils # (auto) 2.8 10 ^3/uL (1.6-8.6); Neutrophils % (auto) 53.7 % (37.0-80.0); Red Blood Cells 5.52 10^6/uL (4.0-5.20); Red Cell Distribution Width 15.8 % (11.8-14.3); White Blood Cell 5.2 10^3/uL (4.4-10.8)
[2023-10-05 14:59] LABS: Alanine Aminotransferase 20 U/L (7-40); Albumin 4.4 g/dL (3.2-4.8); Alkaline Phosphatase 95 U/L (46-116); Anion Gap 7 (5-15); Aspartate Aminotransferase 22 U/L (13-40); BUN/Creatinine Ratio 14.7 (10.0-20.0); Blood Urea Nitrogen 10 mg/dL (9-23); Calcium 9.4 mg/dL (8.7-10.4); Carbon Dioxide 26 mmol/L (20-30); Chloride 102 mmol/L (98-107); Glucose 137 mg/dL (74-106); Potassium 4.3 mmol/L (3.5-5.1); Sodium 135 mmol/L (136-145)
[2023-10-05 15:00] LABS: Bilirubin, Total 0.5 mg/dL (0.2-1.0); Total Protein 7.5 g/dL (5.7-8.2)
[2023-10-05] MEDS ORDERED: AML5T PO (15:34)
== END 2023-10-05 16:20 | disposition home or self-care (01) ==
LOC: ER 13:48
DX: I11.0 Hypertensive heart disease with heart failure (principal); I50.9 Heart failure, unspecified; E11.9 Type 2 diabetes mellitus without complications; J44.9 Chronic obstructive pulmonary disease, unspecified; Z91.148 Patient's other noncompliance with medication regimen for other reason; Z98.890 Other specified postprocedural states; Z79.899 Other long term (current) drug therapy
CPT/HCPCS: 36415; 70450; 80053; 82962; 84484; 85025; 93005

== ENCOUNTER → 2023-10-20 | Outpatient (CLI) | payer OTHER, MEDICAID ==
[~2023-10-20] MED LIST changes: +AML5T PO; -AMLO1TAB23 PO
[2023-10-20 09:05] LABS: Chloride 101 mmol/L (98-107); Potassium 3.7 mmol/L (3.5-5.1); Sodium 137 mmol/L (136-145)
[2023-10-20 09:06] LABS: Anion Gap 9 (5-15); Carbon Dioxide 27 mmol/L (20-30)
[2023-10-20 09:07] LABS: Calcium 9.3 mg/dL (8.5-10.1)
[2023-10-20 09:11] LABS: BUN/Creatinine Ratio 12.1 (10.0-20.0); Blood Urea Nitrogen 8 mg/dL (9-23); Glucose 155 mg/dL (74-106)
== END | disposition home or self-care (01) ==
LOC: LAB 08:41
PROVIDERS: ATTEND Internal Medicine
DX: I16.9 Hypertensive crisis, unspecified (principal); E78.5 Hyperlipidemia, unspecified
CPT/HCPCS: 36415; 80048

== ENCOUNTER → 2023-10-27 | Outpatient (CLI) | payer OTHER, MEDICAID ==
[2023-10-27 08:07] LABS: Basophils # (auto) 0 10 ^3/uL (0-0.2); Eosinophils # (auto) 0.2 10 ^3/uL (0-0.8); Monocytes # (auto) 0.4 10 ^3/uL (0-1.3); Neutrophils # (auto) 3.1 10 ^3/uL (1.6-8.6); Nucleated Red Blood Cells % 0.1 %; Red Cell Distribution Width 15.6 % (11.8-14.3); White Blood Cell 5.1 10^3/uL (4.4-10.8)
[2023-10-27 08:09] LABS: Basophils % (auto) 0.8 % (0.0-2.0); Eosinophils % (auto) 3.6 % (0.0-7.0); Hematocrit 47.2 % (36.0-46.0); Hemoglobin 15.1 g/dL (12.2-16.2); Lymphocytes # (auto) 1.3 10 ^3/uL (0.4-5.4); Lymphocytes % (auto) 26.4 % (10.0-50.0); Mean Corpuscular Hemoglobin 26.4 pg (28.0-32.0); Mean Corpuscular Hgb Conc. 32.1 g/dL (32.0-36.0); Mean Corpuscular Volume 82.4 fL (80.0-100.0); Monocytes % (auto) 8.3 % (0.0-12.0); Neutrophils % (auto) 60.9 % (37.0-80.0); Red Blood Cells 5.72 10^6/uL (4.0-5.20)
[2023-10-27 08:14] LABS: Urine Bacteria NONE SEEN /hpf (None Seen); Urine Blood Negative /uL (Negative); Urine Clarity Clear (Clear); Urine Protein, UAD Negative (Negative); Urine Specific Gravity 1.005 (1.001-1.035); Urine Urobilinogen Normal (Negative); Urine WBC <1 /hpf (0 - 5); Urine pH 6.5 (5.0-8.0)
[2023-10-27 08:20] LABS: Urine Color Straw (Yellow)
[2023-10-27 08:23] LABS: Alanine Aminotransferase 19 U/L (7-40); Albumin 4.6 g/dL (3.2-4.8); Alkaline Phosphatase 98 U/L (46-116); Anion Gap 6 (5-15); Aspartate Aminotransferase 18 U/L (13-40); BUN/Creatinine Ratio 7.8 (10.0-20.0); Blood Urea Nitrogen 6 mg/dL (9-23); Calcium 9.8 mg/dL (8.5-10.1); Carbon Dioxide 31 mmol/L (20-30); Chloride 101 mmol/L (98-107); Glucose 137 mg/dL (74-106); LDL Cholesterol 122 mg/dL (< 100); Potassium 4.3 mmol/L (3.5-5.1); Sodium 138 mmol/L (136-145); Triglycerides 120 mg/dL (< 150)
[2023-10-27 08:24] LABS: Bilirubin, Total 0.4 mg/dL (0.2-1.0); Cholesterol 182 mg/dL (< 200); HDL Cholesterol 46 mg/dL (40-59); Total Protein 8.2 g/dL (5.7-8.2)
[2023-10-27 08:38] LABS: Creatinine, Urine 47.45 mg/dL (30.0-125.0)
== END | disposition home or self-care (01) ==
LOC: LAB 07:45
PROVIDERS: ATTEND Internal Medicine
DX: Z00.01 Encounter for general adult medical examination with abnormal findings (principal); E78.5 Hyperlipidemia, unspecified; E11.69 Type 2 diabetes mellitus with other specified complication
CPT/HCPCS: 36415; 80053; 80061; 81001; 82043; 82570; 83036; 84439; 84443; 85025

== ENCOUNTER 2023-11-21 11:07 | Emergency (ER) | payer OTHER, MEDICAID ==
[~2023-11-21] VITALS: Ht 162.6 cm; Wt 128.5 kg
[2023-11-21 12:31] VITALS: BP 129/98; PULSE 105; RESP 18; TEMP 97.9; O2SAT 96
[2023-11-21] MEDS ORDERED: METOCLOPRAMIDE HCL 5MG/ml INJ 2ml VIAL IM ONE (13:00)
[2023-11-21] MEDS ORDERED: diphenhdrAMINE HCL 50 MG/1 ML VL IM ONE (13:00)
[2023-11-21] MEDS ORDERED: KETOROLAC TROMETH 60MG/2ML VIAL IM ONE (13:00)
== END 2023-11-21 14:41 | disposition home or self-care (01) ==
LOC: ER 11:07
DX: R51.9 Headache, unspecified (principal); I11.0 Hypertensive heart disease with heart failure; I50.9 Heart failure, unspecified; E11.9 Type 2 diabetes mellitus without complications; J44.9 Chronic obstructive pulmonary disease, unspecified; Z98.890 Other specified postprocedural states
CPT/HCPCS: 70450; 96372; 99285; J1200; J1885; J2765

== ENCOUNTER 2023-12-10 19:47 | Emergency (ER) | payer OTHER, MEDICAID ==
[~2023-12-10] VITALS: Ht 165.1 cm; Wt 120.0 kg
[2023-12-10] MEDS: ALBUTEROL SULF 2.5 MG/0.5ML(0.5%) NEB SOLN NEB ONE (20:36)
[2023-12-10] MEDS: IPRATROPIUM BROM 0.5 MG/2.5ML INH SOL NEB ONE (20:36)
[2023-12-10 20:44] LABS: Basophils # (auto) 0.1 10 ^3/uL (0-0.2); Basophils % (auto) 1.2 % (0.0-2.0); Eosinophils # (auto) 0.1 10 ^3/uL (0-0.8); Eosinophils % (auto) 1.3 % (0.0-7.0); Hematocrit 43.6 % (36.0-46.0); Lymphocytes # (auto) 1.9 10 ^3/uL (0.4-5.4); Lymphocytes % (auto) 31.1 % (10.0-50.0); Mean Corpuscular Hemoglobin 26.4 pg (28.0-32.0); Mean Corpuscular Volume 82.4 fL (80.0-100.0); Monocytes # (auto) 0.4 10 ^3/uL (0-1.3); Monocytes % (auto) 6.7 % (0.0-12.0); Neutrophils # (auto) 3.6 10 ^3/uL (1.6-8.6); Neutrophils % (auto) 59.7 % (37.0-80.0); Nucleated Red Blood Cells % 0.1 %; Red Blood Cells 5.29 10^6/uL (4.0-5.20); Red Cell Distribution Width 16.1 % (11.8-14.3)
[2023-12-10 20:59] LABS: Partial Thromboplastin Time 24.2 SEC (24.5-34.5); Prothrombin Time 10.5 sec (9.3-11.8)
[2023-12-10 21:11] LABS: Chloride 96 mmol/L (98-107); Potassium 3.9 mmol/L (3.5-5.1); Sodium 131 mmol/L (136-145)
[2023-12-10 21:13] LABS: Anion Gap 15 (5-15); Carbon Dioxide 20 mmol/L (20-30)
[2023-12-10 21:19] LABS: Alkaline Phosphatase 109 U/L (46-116); Blood Alcohol 185.2 mg/dL (<10); Blood Urea Nitrogen 8 mg/dL (9-23)
[2023-12-10 21:20] LABS: Alanine Aminotransferase 19 U/L (7-40); Aspartate Aminotransferase 22 U/L (13-40)
[2023-12-10 21:21] LABS: Albumin 4.4 g/dL (3.2-4.8); Bilirubin, Total 0.6 mg/dL (0.2-1.0); Total Protein 7.2 g/dL (5.7-8.2)
[2023-12-10 22:03] LABS: Glucose 406 mg/dL (74-106)
[2023-12-11] MEDS: InsuLIN REG 1unit/0.01ml Soln (100units/ml) SC ONE (01:46)
[2023-12-11 01:48] VITALS: BP 146/89; PULSE 108; RESP 20; TEMP 98.7; O2SAT 97
== END 2023-12-11 01:50 | disposition home or self-care (01) ==
LOC: ER 19:47 → EDBD 19:47 → ER 12-11 01:50
DX: J45.901 Unspecified asthma with (acute) exacerbation (principal); F10.129 Alcohol abuse with intoxication, unspecified; R22.0 Localized swelling, mass and lump, head; R47.81 Slurred speech; E11.65 Type 2 diabetes mellitus with hyperglycemia; I11.0 Hypertensive heart disease with heart failure; I50.9 Heart failure, unspecified; Z91.199 Patient's noncompliance with other medical treatment and regimen due to unspecified reason; Z98.890 Other specified postprocedural states; Y90.0 Blood alcohol level of less than 20 mg/100 ml
CPT/HCPCS: 36415; 70450; 70486; 71045; 80053; 80320; 82962; 83880; 84484; 85025; 85610; 85730; 93005; 94640; 99285; J7644

== ENCOUNTER 2024-01-09 17:50 | Emergency (ER) | payer OTHER, MEDICAID ==
[~2024-01-09] VITALS: Ht 170.2 cm; Wt 125.1 kg
[2024-01-09] MEDS: DexAMETHasone SOD PHOS 10MG/1ML VIAL INJ IM ONE (00:45)
[2024-01-09] MEDS: ALBUTEROL SULF 2.5 MG/0.5ML(0.5%) NEB SOLN NEB ONE (18:13)
[2024-01-09] MEDS: IPRATROPIUM BROM 0.5 MG/2.5ML INH SOL NEB ONE (18:13)
[2024-01-09 18:28] LABS: Basophils # (auto) 0 10 ^3/uL (0-0.2); Eosinophils # (auto) 0.2 10 ^3/uL (0-0.8); Hemoglobin 13.9 g/dL (12.2-16.2); Lymphocytes # (auto) 1.7 10 ^3/uL (0.4-5.4); Mean Corpuscular Volume 81.8 fL (80.0-100.0); Monocytes # (auto) 0.3 10 ^3/uL (0-1.3); Nucleated Red Blood Cells % 0.2 %; White Blood Cell 4.4 10^3/uL (4.4-10.8)
[2024-01-09 18:30] LABS: Basophils % (auto) 0.8 % (0.0-2.0); Eosinophils % (auto) 4.5 % (0.0-7.0); Hematocrit 43.4 % (36.0-46.0); Lymphocytes % (auto) 38.3 % (10.0-50.0); Mean Corpuscular Hemoglobin 26.2 pg (28.0-32.0); Monocytes % (auto) 7.5 % (0.0-12.0); Neutrophils # (auto) 2.2 10 ^3/uL (1.6-8.6); Neutrophils % (auto) 48.9 % (37.0-80.0); Red Blood Cells 5.31 10^6/uL (4.0-5.20); Red Cell Distribution Width 16.5 % (11.8-14.3)
[2024-01-09 18:38] LABS: Alanine Aminotransferase 17 U/L (7-40); Albumin 4.2 g/dL (3.2-4.8); Alkaline Phosphatase 91 U/L (46-116); Anion Gap 8 (5-15); Aspartate Aminotransferase 25 U/L (13-40); BUN/Creatinine Ratio 5.7 (10.0-20.0); Bilirubin, Total 0.4 mg/dL (0.2-1.0); Blood Urea Nitrogen 5 mg/dL (9-23); Calcium 9.1 mg/dL (8.5-10.1); Carbon Dioxide 25 mmol/L (20-30); Chloride 104 mmol/L (98-107); Glucose 154 mg/dL (74-106); Potassium 3.3 mmol/L (3.5-5.1); Sodium 137 mmol/L (136-145); Total Protein 7.4 g/dL (5.7-8.2)
[2024-01-09] MEDS ORDERED: AUG875T PO (23:12)
[2024-01-10 00:44] VITALS: BP 154/92; PULSE 104; RESP 16; O2SAT 93
== END 2024-01-10 00:46 | disposition home or self-care (01) ==
LOC: ER 17:50
DX: J44.1 Chronic obstructive pulmonary disease with (acute) exacerbation (principal); I11.0 Hypertensive heart disease with heart failure; I50.9 Heart failure, unspecified; E11.9 Type 2 diabetes mellitus without complications; Z98.890 Other specified postprocedural states; Z87.891 Personal history of nicotine dependence
CPT/HCPCS: 36415; 71046; 80053; 85025; 93005; 94640; 96372; 99285; J1100; J7644

== ENCOUNTER → 2024-04-10 | Outpatient (CLI) | payer OTHER, MEDICAID ==
[~2024-04-10] MED LIST changes: +AUG875T PO
[2024-04-10 12:36] LABS: Anion Gap 4 (5-15); Carbon Dioxide 29 mmol/L (20-30); Chloride 104 mmol/L (98-107); Sodium 137 mmol/L (136-145)
[2024-04-10 12:37] LABS: Calcium 9.9 mg/dL (8.5-10.1)
[2024-04-10 12:42] LABS: BUN/Creatinine Ratio 18.4 (10.0-20.0); Blood Urea Nitrogen 14 mg/dL (9-23); Glucose 118 mg/dL (74-106)
== END | disposition home or self-care (01) ==
LOC: LAB 10:23
PROVIDERS: ATTEND Internal Medicine
DX: R94.4 Abnormal results of kidney function studies (principal)
CPT/HCPCS: 36415; 80048

== ENCOUNTER → 2024-05-01 | Outpatient (CLI) | payer OTHER, MEDICAID ==
[2024-05-01 09:30] LABS: Anion Gap 6 (5-15); Calcium 9.3 mg/dL (8.5-10.1); Carbon Dioxide 26 mmol/L (20-30); Chloride 106 mmol/L (98-107); Potassium 3.9 mmol/L (3.5-5.1); Sodium 138 mmol/L (136-145)
[2024-05-01 09:36] LABS: Glucose 134 mg/dL (74-106); Triglycerides 163 mg/dL (< 150)
[2024-05-01 09:37] LABS: Cholesterol 178 mg/dL (< 200); LDL Cholesterol 114 mg/dL (< 100)
[2024-05-01 09:38] LABS: HDL Cholesterol 44 mg/dL (40-59)
[2024-05-01 09:43] LABS: BUN/Creatinine Ratio 6.6 (10.0-20.0); Blood Urea Nitrogen < 5 mg/dL (9-23)
== END | disposition home or self-care (01) ==
LOC: LAB 08:09
PROVIDERS: ATTEND Internal Medicine
DX: E11.22 Type 2 diabetes mellitus with diabetic chronic kidney disease (principal); I13.0 Hypertensive heart and chronic kidney disease with heart failure and stage 1 through stage 4 chronic kidney disease, or unspecified chronic kidney disease; N18.9 Chronic kidney disease, unspecified
CPT/HCPCS: 36415; 80048; 80061; 83036

== ENCOUNTER 2024-05-30 10:01 | Emergency (ER) | payer OTHER, MEDICAID ==
[~2024-05-30] VITALS: Ht 165.1 cm; Wt 123.8 kg
[2024-05-30 11:48] VITALS: BP 158/98; PULSE 84; RESP 17; TEMP 98.2; O2SAT 95
[2024-05-30] MEDS ORDERED: METH4PAK PO (12:23)
== END 2024-05-30 12:31 | disposition home or self-care (01) ==
LOC: ER 10:01
DX: R22.0 Localized swelling, mass and lump, head (principal); J44.9 Chronic obstructive pulmonary disease, unspecified; I11.0 Hypertensive heart disease with heart failure; I50.89 Other heart failure; E11.9 Type 2 diabetes mellitus without complications; Z98.890 Other specified postprocedural states; Z90.710 Acquired absence of both cervix and uterus; Z79.899 Other long term (current) drug therapy; Z79.891 Long term (current) use of opiate analgesic; Z79.84 Long term (current) use of oral hypoglycemic drugs

== ENCOUNTER 2025-05-07 00:50 | Inpatient (IN) | payer OTHER, MEDICAID ==
[~2025-05-07] VITALS: Ht 165.1 cm; Wt 123.3 kg
[2025-05-07] VITALS (18 sets, daily range): BP systolic 121–170; BP diastolic 70–98; PULSE 74–120; RESP 14–94; TEMP 97.8–98.5; O2SAT 92–100
[2025-05-07] MEDS ORDERED: MORPHINE SULFATE INJ 2 MG/ml SYRG IV PRN (03:15)
[2025-05-07] MEDS ORDERED: NITROGLYCERIN 0.4 MG SL TAB SL PRN (03:15)
[2025-05-07] MEDS ORDERED: DEXTROSE (50%) 50ML SYRG IV PRN (03:15)
--- NOTE | 2025-05-07 04:03 | DVHHP2 ---
History of Present Illness History of Present Illness This is a 55-year-old female with past medical history of Asthma, COPD not on home oxygen, Hypertension, GERD, type 2 Diabetes mellitus, Hyperlipidemia, CHF, x2, left eye surgery BIBEMS to [facility] due to sudden onset of shortness of breaths for 1 hour. As per EMS report, patient having shortness of breath associated with wheezing, oxygen saturation was low, administered breathing treatments x2, patient oxygen saturation improving to 92%. Patient transferred to [facility] for further management. Patient evaluated in bed side, patient admitted SOB started suddenly and getting worse for 1 hour, called EMS. Patient denies any chest pain, fever, headache, cough, dizziness or any provoking factor. Denies any recent sick contact, started new medicine/food. Patient compliance with her home medications. In [facility], COVID 19, influenza type a and B became negative, CRP-1.19, lactic acid -3.8, ABG(pH 7.34, pCO2 36, PO2 98, HC03 19.6), troponin x2 negative, EKG-sinus tachycardia, QTc 469. Patient currently denies abdominal pain, fever, dysuria, leg swelling. Patient able to ambulate without using any walker or cane. Past medical history: asthma, COPD not on home oxygen, hypertension, GERD, type 2 diabetes mellitus, hyperlipidemia, CHF Past surgical history: x2, left eye surgery, hysterectomy 2011 Family History: Hypertension Smoke: No, passive smoker ALCOHOL: occasional Drugs: None Lives: with Family ALLERGY: NO KNOWN ALLERGY PCP: Bony Juares Review of Systems Constitutional: Yes: Other (Obese); No: Fever, Chills, Sweats, Weakness, Malaise Eyes: No: Pain, Vision change, Conjunctivae inflammation, Eyelid inflammation, Other, Redness ENT: No: Ear pain, Ear discharge, Nose pain, Nose discharge, Nose congestion, Mouth pain, Mouth swelling, Throat pain, Throat swelling, Other Respiratory: Shortness of breath, Wheezing Cardiovascular: No: Chest Pain, Palpitations, Orthopnea, Paroxysmal Noc. Dyspnea, Edema, Lt Headedness, Other Gastrointestinal: No: Nausea, Vomiting, Abdominal Pain, Diarrhea, Constipation, Melena, Hematochezia, Other Genitourinary: No Dysuria, No Frequency, No Incontinence, No Hematuria, No Retention, No Other Musculoskeletal: No: other, neck pain, shoulder pain, arm pain, back pain, hand pain, leg pain, foot pain Skin: No: Rash, Lesions, Jaundice, Bruising, Other Allergies: Coded Allergies: NO KNOWN ALLERGIES (Unverified , 12/04/14) Exam Vital Signs Vital Signs Date Time Temp Pulse Resp B/P (MAP) Pulse Ox O2 Delivery O2 Flow Rate FiO2 05/07/25 01:00 98.4 110 16 129/84 (99) 94 98.4 General Appearance: Alert, Oriented X3, Cooperative, mild distress, Other (Obese appearance) HEENT: Atraumatic, PERRLA, EOMI Respiratory: Clear to auscultation, Normal air movement, Other (Mild wheezes bilateral lungs) Cardiovascular: Regular rate, Normal S1, Normal S2 Abdominal: Normal bowel sounds, Soft, No tenderness Extremities: No clubbing, No cyanosis, No edema Skin: No rashes, No breakdown Neuro: Normal gait, Normal speech, Strength at 5/5 X4 ext SEPSIS Sepsis Screen Physician Orders Admit (05/07/25 03:05) Nitroglycerin Sublingual (Ntrostat Subli (05/07/25 03:15) Morphine Sulfate Injection (05/07/25 03:15) Oxygen By Nasal Cannula (05/07/25 03:05) Complete Blood Count (05/07/25 03:05) Comprehensive Metabolic Panel (05/07/25 03:05) Ct Angio Chest Contrast (05/07/25 03:05) Albuterol Medneb (Ventolin Medneb) (05/07/25 03:15) Ipratropium Medneb (Atrovent Medneb) (05/07/25 06:00) Lactic Acid W/ Reflex Order (05/07/25 03:05) Chest Xray 1 View (05/07/25 03:05) B-Type Natriuretic Peptide (05/07/25 03:05) Thyroid Stimulating Hormone (05/07/25 03:05) Hemoglobin A1c (05/07/25 03:05) Urinalysis (05/07/25 03:05) Drug Screen (05/07/25 03:05) Methylprednisolone Sod Succ (Solu Medrol (05/07/25 03:15) Methylprednisolone Sod Succ (Solu Medrol (05/07/25 10:00) Ciprofloxacin Tablet (Cipro Tablet) (05/07/25 03:15) Ciprofloxacin Tablet (Cipro Tablet) (05/07/25 10:00) Famotidine Tablet (Pepcid Tablet) (05/07/25 10:00) Cardiac Diet-2gna,Lofat,Lochol (05/07/25 Breakfast) Glucose Blood (Accu-Chek Comfort Curve T (05/07/25 07:00) Insulin R (Human) (Insulin R) (05/07/25 22:00) Insulin R (Human) (Insulin R) (05/07/25 07:00) Dextrose 50% Syringe (05/07/25 03:15) NS (05/07/25 03:15) Amlodipine Tablet (Norvasc Tablet) (05/07/25 10:00) Nifedipine Er (Procardia Xl (Time-Releas (05/07/25 10:00) Vital Signs Date Time Temp Pulse Resp B/P (MAP) Pulse Ox O2 Delivery O2 Flow Rate FiO2 05/07/25 01:00 98.4 110 16 129/84 (99) 94 98.4 Assessment/Plan Assessment/Plan #Acute hypoxic respiratory failure due to COPD exacerbation rule out pulmonary embolism -Patient came with shortness of breath and wheezing -Received breathing treatment x2 by EMS and saturation 92% -Patient currently on 3 L oxygen via NC and saturation 93-94% - Keep O2 saturation above 92% -Patient became tachycardic and shortness of breaths -Troponin x2 negative (6>6), repeat trop order -CRP 1.19 -Pro BNP 26 -Wells score-4.5 % -CT angiogram order to rule out PE(creatinine 0.75, eGFR 93) -CXR to rule out cardiopulmonary disease -Methylprednisolone 40 mg IV stat and b.i.d. -Ipratropium nebulization q.6 H -Albuterol nebulization q.6 H p.r.n. -One therapeutic dose Lovenox given, start Lovenox after CT angio chest. -Lasix 20 mg IV given. #Metabolic acidosis due to lactic acidosis -ABG: PH 7.34, HC03 19.6, pCO2 36 -Anion gap 13 -Lactic acid 3.8, repeat lactic acid order -NSS 75 cc per hour #Acute Exacerbation COPD -Patient came with shortness of breaths and history of COPD -Denies active smoking but passive smoker(son smoke) -Methylprednisolone 40 mg IV stat and b.i.d. -Ipratropium nebulization q.6 H -Albuterol nebulization q.6 H p.r.n. -Ciprofloxacin 500 mg p.o. b.i.d. started prophylactically -Order ECHO # Acute on chronic Diastolic Congestive Heart Failure -Home medication, furosemide 40 mg po daily -Echo (04/21/2023)- Concentric LVH of moderate degree. Aortic root enlargement. Valves appear be structurally normal. EF of greater than 75 to 80%. Normal RV function. -not follow-up with salary manager #Diabetes Mellitus Type II with hyperglycemia, HbA1c 7.1 on 05/01/2024 -Hold home medication-metformin 500 mg, Ozempic 8 mg/3 mL -CMP glucose 147 -Insulin sliding scale -Monitor blood sugar, -HbA1c ordered #Essential hypertension -Hold. Amlodipine 5 mg p.o. daily -Nifedipine 90 mg ER p.o. daily -Monitor blood pressure #Hyperlipidemia -Atorvastatin 40 mg p.o. daily,Pt not taking. # GERD -Famotidine 20 mg p.o. b.i.d. # morbid obesity, BMI 45.3 -Lifestyle modification Diet: Cardiac GI prophylaxis: Famotidine 20 mg p.o. b.i.d. DVT prophylaxis: 1 therapeutic dose Lovenox given, start Lovenox after CT angio chest. Goals of care discussions, more than 29 minute spent with patient. Full code status. Case discussed with Dr. Funes Plan discussed with: Patient, Other (Nurse) My Orders Orders - BENSON DE LA ROSA RESIDENT Procedure Category Date Status Time Admit ADMIT 05/07/25 Transmitted 03:05 Nitroglycerin PHA 05/07/25 Logged Sublingual (Ntrostat 03:15 Morphine Sulfate PHA 05/07/25 Logged Injection 03:15 Oxygen By Nasal RT 05/07/25 Transmitted Cannula 03:05 Complete Blood Count LAB 05/07/25 Logged 03:05 Comprehensive LAB 05/07/25 Logged Metabolic Panel 03:[address] 05/07/25 Logged Contrast 03:05 Albuterol Medneb PHA 05/07/25 Logged (Ventolin Medneb) 03:15 Ipratropium Medneb PHA 05/07/25 Logged (Atrovent Medneb) 06:00 Lactic Acid W/ Reflex LAB 05/07/25 Logged Order 03:05 Chest Xray 1 View XY 05/07/25 Logged 03:05 B-Type Natriuretic LAB 05/07/25 Logged Peptide 03:05 Thyroid Stimulating LAB 05/07/25 Logged Hormone 03:05 Hemoglobin A1c LAB 05/07/25 Logged 03:05 Urinalysis LAB 05/07/25 Logged 03:05 Drug Screen LAB 05/07/25 Logged 03:05 Methylprednisolone PHA 05/07/25 Logged Sod Succ (Solu Medrol 03:15 Methylprednisolone PHA 05/07/25 Logged Sod Succ (Solu Medrol 10:00 Ciprofloxacin Tablet PHA 05/07/25 Logged (Cipro Tablet) 03:15 Ciprofloxacin Tablet PHA 05/07/25 Logged (Cipro Tablet) 10:00 Famotidine Tablet PHA 05/07/25 Logged (Pepcid Tablet) 10:00 Cardiac DIET 05/07/25 Transmitted Diet-2gna,Lofat,Lochol Breakfast Glucose Blood PHA 05/07/25 Logged (Accu-Chek Comfort 07:00 Insulin R (Human) PHA 05/07/25 Logged (Insulin R) 22:00 Insulin R (Human) PHA 05/07/25 Logged (Insulin R) 07:00 Dextrose 50% Syringe PHA 05/07/25 Transmitted 03:15 NS PHA 05/07/25 Transmitted 03:15 Amlodipine Tablet PHA 05/07/25 Transmitted (Norvasc Tablet) 10:00 Nifedipine Er PHA 05/07/25 Transmitted (Procardia Xl 10:00 Date of Service: May 07, 2025 Billing Provider: IVETTE FUNES MD Common Visit Codes: [id number] INP/OBS CARE (HIGH) Secondary Visit Codes: [id number] CARE PLAN 30 MINUTES BENSON DE LA ROSA RESIDENT May 07, 2025 04:03
[2025-05-07] MEDS: methylPREDNISolone SOD SUCC 40 MG/ML VL IV ONE (06:00)
[2025-05-07] MEDS: CIPROFLOXACIN HCL 500 MG TAB PO ONE (06:00)
[2025-05-07] MEDS: SODIUM CHLORIDE 0.9% 1,000 ML IV SCH (06:00)
[2025-05-07] MEDS: InsuLIN REG 1unit/0.01ml Soln (100units/ml) SC SCH ×2 (06:35→22:05)
[2025-05-07] MEDS: ACCU-CHEK COMFORT CURVE STRIP VI SCH (06:35)
[2025-05-07] MEDS: ALBUTEROL SULF 2.5 MG/0.5ML(0.5%) NEB SOLN NEB PRN (06:41)
[2025-05-07] MEDS: IPRATROPIUM BROM 0.5 MG/2.5ML INH SOL NEB SCH (06:41)
[2025-05-07] MEDS ORDERED: ENOXAPARIN SOD 100 MG/1 ML SYRINGE SC ONE (07:00)
[2025-05-07 08:48] LABS: Hematocrit 48.6 % (36.0-46.0); Hemoglobin 15.9 g/dL (12.2-16.2); Mean Corpuscular Hemoglobin 27.9 pg (28.0-32.0); Mean Corpuscular Volume 85.2 fL (80.0-100.0); Nucleated Red Blood Cells % 0.2 %
[2025-05-07 09:00] LABS: Alanine Aminotransferase 25 U/L (7-40); Albumin 4.7 g/dL (3.2-4.8); Alkaline Phosphatase 94 U/L (46-116); Anion Gap 14 (5-15); BUN/Creatinine Ratio 9.5 (10.0-20.0); Calcium 10.1 mg/dL (8.7-10.4); Chloride 105 mmol/L (98-107); Potassium 4.5 mmol/L (3.5-5.1); Sodium 138 mmol/L (136-145)
[2025-05-07 09:01] LABS: Bilirubin, Total 0.3 mg/dL (0.2-1.0)
[2025-05-07 09:10] LABS: Blood Urea Nitrogen 7 mg/dL (9-23); Carbon Dioxide 19 mmol/L (20-31); Glucose 156 mg/dL (74-106); Total Protein 8.2 g/dL (5.7-8.2)
[2025-05-07 09:12] LABS: Lactic Acid w/Reflex 4.3 mmol/L (0.4-2.0)
[2025-05-07] MEDS: FAMOTIDINE 20 MG TAB PO SCH (09:20)
[2025-05-07] MEDS: CIPROFLOXACIN HCL 500 MG TAB PO SCH (09:20)
[2025-05-07] MEDS: ENOXAPARIN SOD 120 MG/0.8 ML SYRINGE SC ONE (09:23)
[2025-05-07] MEDS: methylPREDNISolone SOD SUCC 40 MG/ML VL IV SCH (09:24)
[2025-05-07] MEDS: FUROSEMIDE 20 MG/2 ML VIAL IV ONE (09:26)
--- NOTE | 2025-05-07 16:26 | DVHPN2 ---
Subjective Patient is still having trouble breathing short of breath. Tachypneic. But endorsing that she does feel his symptoms are resolving. Reviewed: H&P Changes from previous H/P or p: No Changes General: Per HPI Eyes: No Pain, No Vision change, No Conjunctivae inflammation, No Eyelid inflammation, No Other, No Redness ENT: No Ear pain, No Ear discharge, No Nose pain, No Nose discharge, No Nose congestion, No Mouth pain, No Mouth swelling, No Throat pain, No Throat swelling, No Other Cardiovascular: No Chest Pain, No Palpitations, No Orthopnea, No Paroxysmal Noc. Dyspnea, No Edema, No Lt Headedness, No Other Respiratory: Shortness of breath, Wheezing Gastrointestinal: No Nausea, No Vomiting, No Abdominal Pain, No Diarrhea, No Constipation, No Melena, No Hematochezia, No Other Genitourinary: No Dysuria, No Frequency, No Incontinence, No Hematuria, No Retention, No Other Musculoskeletal: No other, No neck pain, No shoulder pain, No arm pain, No back pain, No hand pain, No leg pain, No foot pain Skin: No Rash, No Lesions, No Jaundice, No Bruising, No Other Objective Vitals Vital Signs Date Time Temp Pulse Resp B/P (MAP) Pulse Ox O2 Delivery O2 Flow Rate FiO2 05/07/25 11:37 110 14 95 05/07/25 11:29 Room Air 0.0 05/07/25 11:29 N/A 05/07/25 09:26 170/92 05/07/25 09:00 98.0 98.0 Intake/Output Intake and Output 05/07/25 07:00 Intake Total 400 ml Output Total 350 ml Balance 50 ml Intake Oral 400 ml Output Urine Total 350 ml # Bowel Movements 2 Exam GEN: Healthy appearing, well-developed, NAD. Morbid obesity BMI 45 HEENT: NC/AT; MMM. CV: RRR, no m/r/g. LUNGS: Diffuse wheezing in all lung giron, distant breath sounds in all lung giron ABD: Soft, NT/ND, NBS, no masses or organomegaly. EXT: skin Warm, well perfused. no rashes. No clubbing, cyanosis, or edema. NEURO: Ambulating with no limitations. No focal deficits. Medications Current Medications Medications Dose Ordered Sig/Arely Route Start Time Stop Time Status Last Admin Dose Admin Nitroglycerin 0.4 mg Q5MINP PRN SL 05/07/25 03:15 Morphine Sulfate 2 mg Q30M PRN IV 05/07/25 03:15 Albuterol 2.5 mg Q6HPRN PRN NEB 05/07/25 03:15 05/07/25 11:29 2.5 MG Ipratropium [place] 0.5 mg Q6HR NEB 05/07/25 06:00 05/07/25 11:29 0.5 MG Methylprednisolone Sodium Succinate 40 mg BID IV 05/07/25 10:00 05/07/25 09:24 40 MG Ciprofloxacin 500 mg Q12HR PO 05/07/25 10:00 05/07/25 09:20 500 MG Famotidine 20 mg Q12HR PO 05/07/25 10:00 05/07/25 09:20 20 MG Diagnostic Test (Pha) 1 strip ACHS 05/07/25 07:00 05/07/25 11:41 1 STRIP Insulin Human Regular HS SC 05/07/25 22:00 Insulin Human Regular AC SC 05/07/25 07:00 05/07/25 11:43 6 UNITS Dextrose 50 ml UD PRN IV 05/07/25 03:15 Sodium Chloride 1,000 ml @ 75 mls/hr [id number] IV 05/07/25 03:15 05/07/25 06:00 75 MLS/HR Nifedipine 90 mg DAILY PO 05/07/25 10:00 05/07/25 09:22 90 MG Laboratory Results Laboratory Tests 05/07/25 08:03 Chemistry Test 05/07/25 08:03 Albumin 4.7 g/dL (3.2-4.8) Calcium Level 10.1 mg/dL (8.7-10.4) Total Protein 8.2 g/dL (5.7-8.2) Cardiac Markers Test 05/07/25 12:02 B-Type Natriuretic Peptide 37.45 pg/mL (0-100) LFT Test 05/07/25 08:03 Alanine Aminotransferase (ALT) 25 U/L (7-40) Alkaline Phosphatase 94 U/L (46-116) Aspartate Amino Transferase (AST) 33 U/L (13-40) Total Bilirubin 0.3 mg/dL (0.2-1.0) HgA1c, TSH Test 05/07/25 08:03 Hemoglobin A1c 6.8 % A1C (<5.7) H Thyroid Stimulating Hormone (TSH) 0.94 uIU/mL (0.55-4.78) Microbiology Microbiology Date/Time Source Procedure Growth Status 05/07/25 06:35 Nose MRSA Screen - Final Complete Labs and/or images reviewed: Labs reviewed by me, Image(s) reviewed by me Assessment/Plan Assessment/Plan History of Present Illness This is a 55-year-old female with past medical history of Asthma, COPD not on home oxygen, Hypertension, GERD, type 2 Diabetes mellitus, Hyperlipidemia, CHF, x2, left eye surgery BIBEMS to [facility] due to sudden onset of shortness of breaths for 1 hour. As per EMS report, patient having shortness of breath associated with wheezing, oxygen saturation was low, administered breathing treatments x2, patient oxygen saturation improving to 92%. Patient transferred to [facility] for further management. Patient evaluated in bedside, patient admitted SOB started suddenly and getting worse for 1 hour, called EMS. Patient denies any chest pain, fever, headache, cough, dizziness or any provoking factor. Denies any recent sick contact, started new medicine/food. Patient compliance with her home medications. In [facility], COVID 19, influenza type a and B became negative, CRP-1.19, lactic acid -3.8, ABG(pH 7.34, pCO2 36, PO2 98, HC03 19.6), troponin x2 negative, EKG- sinus tachycardia, QTc 469. Patient currently denies abdominal pain, fever, dysuria, leg swelling. Patient able to ambulate without using any walker or cane. 05/07-patient continues to be short of breath, morbidly obese, diffuse wheezing expiratory and distant breath sounds in all lung giron.. Patient likely in COPD exacerbation, likely worsened with poorly uncontrolled MIKHAIL and ohs. Patient declining CTA. Unable to rule out PE. We will continue DVT prophylaxis. Get we will get D-dimer and ultrasound lower extremities to look for DVTs. Currently low suspicion for DVT even no significant leg swelling in either extremities. Otherwise continue medical management as planned (azithromycin, Solu-Medrol IV, duo nebs scheduled,) Acute hypoxic respiratory failure due to below CBD, in acute exacerbation, with pneumonitis Pulmonary embolus, ruled out Metabolic acidosis Lactic acidosis Neutrophilia Tachypnea Tachycardia CHF, ruled out Type 2 diabetes with hyperglycemia Hypertension Hyperlipidemia GERD Morbid obesity BMI 45 - azithromycin 500 daily -Solu-Medrol 40 IV b.i.d. -Duo nebs q.6 scheduled -SSI mild a.c. HS -Home meds for hypertension amlodipine, replaced with Procardia ; atorvastatin 40 mg; famotidine 20 mg b.i.d. Diet cardiac GI prophylaxis famotidine 20 p.o. b.i.d. DVT prophylaxis Lovenox obesity dose Tele Full code Plan discussed with: Patient Date of Service: May 07, 2025 Billing Provider: ANALI OLVERA MD Common Visit Codes: [id number] INP/OBS CARE(HIGH) ANALI OLVERA MD May 07, 2025 16:26
[2025-05-07] MEDS: LACTATED RINGER'S 1,000 ML IV ONE (16:45)
--- NOTE | 2025-05-07 17:13 | DVH ---
Bilateral lower extremity venous Doppler INDICATION: rule out dvt TECHNIQUE: Duplex venous sonography was performed with real-time and flow sensitive images submitted for evaluation. FINDINGS: Normal phasic venous flow. Veins are fully compressible. No filling defects. IMPRESSION: 1. No evidence of deep vein thrombosis.
[2025-05-07] MEDS: AZITHROMYCIN 500MG/ 250ML 250 ML IV ONE (18:27)
[2025-05-07] MEDS: ALBUTEROL SULF 2.5 MG/0.5ML(0.5%) NEB SOLN NEB SCH (18:59)
--- NOTE | 2025-05-07 20:03 | DVHSR ---
APPROVED REPORT EXAM: Two-dimensional and M-mode echocardiogram with Doppler and color Doppler. Blood Pressure: 143/70 mmHg INDICATION CHF RISK FACTORS Height: 65, Weight: 272 DIMENSIONS LVDd4.3 (3.8-5.7cm)LA (2D)3.3 (1.9-4.0cm)Aortic Root3.3 (2.0-3.7cm) LVDs2.9 (2.5-4.0cm)LA (MM) (1.9-4.0cm)Aortic Cusp Exc1.8 (1.5-2.0cm) EF (%) 59.0 (55-70%)Rt. Atrium3.5 (1.9-4.0cm)Asc. Aorta cm Mitral Valve MitralMitral Stenosis E wave0.76m/sMV Mean GR.mmHg A wave1.11m/sMV Peak GR.mmHg E/A ratio0.72D MVAcm2 DECEL [id number] 1/2 Arcc32ny IVRTmsDop MVA3.55cm2 Aortic Valve Aortic ValveAortic Stenosis V11.43m/Karishma Mean GR.6mmHg V21.71m/Karishma Peak GR.12mmHg LVOT Diameter1.8 (1.8-2.4cm)Doppler AVA2.13cm2 Pulmonic Valve V21.39m/s Other Information Technically limited study due to body habitus and patient position. Conclusion LV EF IS 65% AND IS NORMAL NORMAL VALVES NORMAL RV FUNCTION NO EFFUSION
[2025-05-07] MEDS: ENOXAPARIN SOD 40 MG/0.4 ML SYRINGE SC SCH (22:08)
[2025-05-08] VITALS (13 sets, daily range): BP systolic 104–118; BP diastolic 64–78; PULSE 85–119; RESP 16–22; TEMP 36.7; O2SAT 94–100
[2025-05-08 05:24] LABS: Hematocrit 46.1 % (36.0-46.0); Hemoglobin 15.1 g/dL (12.2-16.2); Mean Corpuscular Hemoglobin 27.8 pg (28.0-32.0); Mean Corpuscular Volume 84.9 fL (80.0-100.0); Nucleated Red Blood Cells % 0.0 %
[2025-05-08 05:44] LABS: Alanine Aminotransferase 17 U/L (7-40); Alkaline Phosphatase 78 U/L (46-116); Anion Gap 8 (5-15); BUN/Creatinine Ratio 16.7 (10.0-20.0); Blood Urea Nitrogen 12 mg/dL (9-23); Calcium 10.0 mg/dL (8.7-10.4); Carbon Dioxide 25 mmol/L (20-31); Chloride 105 mmol/L (98-107); Potassium 4.0 mmol/L (3.5-5.1); Sodium 138 mmol/L (136-145); Total Protein 7.3 g/dL (5.7-8.2)
[2025-05-08 05:45] LABS: Albumin 4.2 g/dL (3.2-4.8); Bilirubin, Total 0.5 mg/dL (0.2-1.0)
[2025-05-08 05:49] LABS: Glucose 199 mg/dL (74-106)
[2025-05-08] MEDS: AZITHROMYCIN 500MG/ 250ML 250 ML IV SCH (09:42)
[2025-05-08 09:54] LABS: Urine Protein, UAD Negative (Negative)
[2025-05-08 10:09] LABS: Amphetamine Screen, Urine Neg (NEGATIVE); Barbiturate Scree,Urine Neg (NEGATIVE); Benzodiazephine Screen, Urine Neg (NEGATIVE); Cannabinoid Screen, Urine Neg (NEGATIVE); Cocaine Screen, Urine Neg (NEGATIVE); Opiate Scree,Urine Neg (NEGATIVE); Phencyclidine Screen, Urine Neg (NEGATIVE)
--- NOTE | 2025-05-08 10:39 | DVHPN2 ---
Subjective Patient is still having trouble breathing short of breath. Tachypneic. But endorsing that she does feel his symptoms are resolving. Reviewed: H&P Changes from previous H/P or p: No Changes General: Per HPI Eyes: No Pain, No Vision change, No Conjunctivae inflammation, No Eyelid inflammation, No Other, No Redness ENT: No Ear pain, No Ear discharge, No Nose pain, No Nose discharge, No Nose congestion, No Mouth pain, No Mouth swelling, No Throat pain, No Throat swelling, No Other Cardiovascular: No Chest Pain, No Palpitations, No Orthopnea, No Paroxysmal Noc. Dyspnea, No Edema, No Lt Headedness, No Other Respiratory: Shortness of breath, Wheezing Gastrointestinal: No Nausea, No Vomiting, No Abdominal Pain, No Diarrhea, No Constipation, No Melena, No Hematochezia, No Other Genitourinary: No Dysuria, No Frequency, No Incontinence, No Hematuria, No Retention, No Other Musculoskeletal: No other, No neck pain, No shoulder pain, No arm pain, No back pain, No hand pain, No leg pain, No foot pain Skin: No Rash, No Lesions, No Jaundice, No Bruising, No Other Objective Vitals Vital Signs Date Time Temp Pulse Resp B/P (MAP) Pulse Ox O2 Delivery O2 Flow Rate FiO2 05/08/25 09:43 118/76 05/08/25 09:00 98.3 119 22 94 98.3 05/08/25 06:58 Nasal Cannula* 2 28 Intake/Output Intake and Output 05/08/25 07:00 Intake Total 1515 ml Balance 1515 ml Intake Oral 490 ml IV Total 1025 ml # Voids 10 Exam GEN: Healthy appearing, well-developed, NAD. Morbid obesity BMI 45 HEENT: NC/AT; MMM. CV: RRR, no m/r/g. LUNGS: Diffuse wheezing in all lung giron, distant breath sounds in all lung giron ABD: Soft, NT/ND, NBS, no masses or organomegaly. EXT: skin Warm, well perfused. no rashes. No clubbing, cyanosis, or edema. NEURO: Ambulating with no limitations. No focal deficits. Medications Current Medications Medications Dose Ordered Sig/Arely Route Start Time Stop Time Status Last Admin Dose Admin Nitroglycerin 0.4 mg Q5MINP PRN SL 05/07/25 03:15 Morphine Sulfate 2 mg Q30M PRN IV 05/07/25 03:15 Ipratropium [place] 0.5 mg Q6HR NEB 05/07/25 06:00 05/08/25 06:57 0.5 MG Methylprednisolone Sodium Succinate 40 mg BID IV 05/07/25 10:00 05/08/25 09:41 40 MG Famotidine 20 mg Q12HR PO 05/07/25 10:00 05/08/25 09:42 20 MG Diagnostic Test (Pha) 1 strip ACHS 05/07/25 07:00 05/08/25 06:33 1 STRIP Insulin Human Regular HS SC 05/07/25 22:00 05/07/25 22:05 6 UNITS Insulin Human Regular AC SC 05/07/25 07:00 05/08/25 06:36 6 UNITS Dextrose 50 ml UD PRN IV 05/07/25 03:15 Sodium Chloride 1,000 ml @ 75 mls/hr [id number] IV 05/07/25 03:15 05/08/25 06:39 75 MLS/HR Nifedipine 90 mg DAILY PO 05/07/25 10:00 05/08/25 09:43 90 MG Albuterol 2.5 mg Q6H NEB 05/07/25 18:00 05/08/25 06:57 2.5 MG Azithromycin 250 ml @ 125 mls/hr DAILY IV 05/08/25 10:00 05/08/25 09:42 125 MLS/HR Enoxaparin Sodium 40 mg BID SC 05/07/25 22:00 05/08/25 09:43 40 MG Laboratory Results Laboratory Tests 05/08/25 04:20 Chemistry Test 05/08/25 04:20 Albumin 4.2 g/dL (3.2-4.8) Calcium Level 10.0 mg/dL (8.7-10.4) Total Protein 7.3 g/dL (5.7-8.2) Coagulation Test 05/07/25 17:24 D-Dimer, Quantitative 0.37 mg/L FEU (0.0-0.49) Cardiac Markers Test 05/07/25 12:02 B-Type Natriuretic Peptide 37.45 pg/mL (0-100) LFT Test 05/08/25 04:20 Alanine Aminotransferase (ALT) 17 U/L (7-40) Alkaline Phosphatase 78 U/L (46-116) Aspartate Amino Transferase (AST) 16 U/L (13-40) Total Bilirubin 0.5 mg/dL (0.2-1.0) Urinalysis Test 05/08/25 09:10 Urine Color Light-yellow (Yellow) Urine Clarity Clear (Clear) Urine pH 6.0 (5.0-9.0) Urine Specific [place] 1.013 (1.001-1.035) Urine Protein Negative (Negative) Urine Ketones Negative (Negative) Urine Blood Negative /uL (Negative) Urine Nitrite Negative (Negative) Urine Bilirubin Negative (Negative) Urine Urobilinogen Normal mg/dL (Negative) Urine Leukocyte Esterase Negative /uL (Negative) Urine RBC <1 /hpf (0 - 4) Urine Microscopic WBC < 1 /HPF (0-5) Urine Squamous Epithelial Cells Few /hpf (<5) Urine Bacteria None seen /hpf (None Seen) Urine Glucose Normal mg/dL (Normal) Microbiology Microbiology Date/Time Source Procedure Growth Status 05/07/25 06:35 Nose MRSA Screen - Final Complete Labs and/or images reviewed: Labs reviewed by me, Image(s) reviewed by me Assessment/Plan Assessment/Plan History of Present Illness This is a 55-year-old female with past medical history of Asthma, COPD not on home oxygen, Hypertension, GERD, type 2 Diabetes mellitus, Hyperlipidemia, CHF, x2, left eye surgery BIBEMS to [facility] due to sudden onset of shortness of breaths for 1 hour. As per EMS report, patient having shortness of breath associated with wheezing, oxygen saturation was low, administered breathing treatments x2, patient oxygen saturation improving to 92%. Patient transferred to [facility] for further management. Patient evaluated in bedside, patient admitted SOB started suddenly and getting worse for 1 hour, called EMS. Patient denies any chest pain, fever, headache, cough, dizziness or any provoking factor. Denies any recent sick contact, started new medicine/food. Patient compliance with her home medications. In [facility], COVID 19, influenza type a and B became negative, CRP-1.19, lactic acid -3.8, ABG(pH 7.34, pCO2 36, PO2 98, HC03 19.6), troponin x2 negative, EKG- sinus tachycardia, QTc 469. Patient currently denies abdominal pain, fever, dysuria, leg swelling. Patient able to ambulate without using any walker or cane. 05/07-patient continues to be short of breath, morbidly obese, diffuse wheezing expiratory and distant breath sounds in all lung giron.. Patient likely in COPD exacerbation, likely worsened with poorly uncontrolled MIKHAIL and ohs. Patient declining CTA. Unable to rule out PE. We will continue DVT prophylaxis. Get we will get D-dimer and ultrasound lower extremities to look for DVTs. Currently low suspicion for DVT even no significant leg swelling in either extremities. Otherwise continue medical management as planned (azithromycin, Solu-Medrol IV, duo nebs scheduled,) 05/08 - weaning off oxygen today. yesterday ddimer neg, dvt LE BL neg. concern for PE is becoming lower. i think she has OHS and MIKHAIL , not able to afford copay for cpap. at this rate her prognosis is poor . she is morbidly obese and with talks with pcp, she hasnt made any significant progress despite ozempic. mikhail, ohs, morbic obesity/metabolic syndrome and copd is reason for current admission causing significant sob. ambulation is great though. if able to wean off oxygen, likely dc today. will need wieght loss, diet control (discussed), cpap, exercise 5 days/week atleast 1hr/day (speed walk or equivalent), copd abx/steroids. Acute hypoxic respiratory failure due to below CBD, in acute exacerbation, with pneumonitis Pulmonary embolus, ruled out Metabolic acidosis Lactic acidosis Neutrophilia Tachypnea Tachycardia CHF, ruled out Type 2 diabetes with hyperglycemia Hypertension Hyperlipidemia GERD Morbid obesity BMI 45 - azithromycin 500 daily -Solu-Medrol 40 IV b.i.d. -Duo nebs q.6 scheduled -SSI mild a.c. HS -Home meds for hypertension amlodipine, replaced with Procardia ; atorvastatin 40 mg; famotidine 20 mg b.i.d. Diet cardiac GI prophylaxis famotidine 20 p.o. b.i.d. DVT prophylaxis Lovenox obesity dose Tele Full code Plan discussed with: Patient My Orders Orders - ANALI OLVERA MD Procedure Category Date Status Time Bilat Lower Dvt US 05/07/25 Resulted 16:31 Albuterol Medneb PHA 05/07/25 In Process (Ventolin Medneb) 18:00 Bipap/Cpap For Sleep RT 05/07/25 Logged Apnea 16:32 Azithromycin 500mg/ PHA 05/08/25 In Process 250ml (Zithromax 50 10:00 Blood Culture JANIE 05/07/25 In Process 16:35 Enoxaparin Sodium PHA 05/07/25 In Process (Lovenox) 22:00 Date of Service: May 08, 2025 Billing Provider: ANALI OLVERA MD Common Visit Codes: NOT BILLABLE ANALI OLVERA MD May 08, 2025 10:39
[2025-05-08 15:11] LABS: Base Excess -0.5 mmol/L (-2.0-3.0)
[2025-05-08] MEDS ORDERED: PRED20TA2 PO (16:12)
[2025-05-08] MEDS ORDERED: AZIT500T66 PO (16:12)
--- NOTE | 2025-05-08 16:18 | DVHDS2 ---
Discharge Summary Date of Admission May 07, 2025 at 00:50 Date of Discharge: May 08, 2025 Labs/Diagnostic Data: Laboratory Results Test 05/08/25 15:01 05/08/25 11:29 05/08/25 09:10 05/08/25 04:20 Blood Gas Specimen Type Arterial Blood Gas Sample Site Right radial Blood Gas Patient Temperature 37.0 Arterial Blood Date Drawn [id number] Arterial Blood pH 7.456 (7.350-7.450) Arterial Blood Partial Pressure CO2 32.6 mmHg (32.0-45.0) Arterial Blood Partial Pressure O2 61.6 mmHg (83.0-108.0) Arterial Blood HCO3 22.5 mmol/L (21.0-28.0) Arterial Blood Oxygen Saturation 91.0 % (94.0-98.0) Arterial Blood Base Excess -0.5 mmol/L (-2.0-3.0) Arterial Blood Oxyhemoglobin 89.6 % (94.0-98.0) Arterial Blood Carboxyhemoglobin 0.9 % (0.5-1.5) Arterial Blood Methemoglobin 0.6 % (0.0-1.5) Tobias Test Yes Blood Gas Total Hemoglobin 15.80 g/dL (12.0-16.0) Blood Gas Modality Room air FiO2 % 21.0 POC Glucose 272 mg/dl (70-106) Urine Color Light-yellow (Yellow) Urine Clarity Clear (Clear) Urine pH 6.0 (5.0-9.0) Urine Specific [place] 1.013 (1.001-1.035) Urine Protein Negative (Negative) Urine Ketones Negative (Negative) Urine Blood Negative /uL (Negative) Urine Nitrite Negative (Negative) Urine Bilirubin Negative (Negative) Urine Urobilinogen Normal mg/dL (Negative) Urine Leukocyte Esterase Negative /uL (Negative) Urine RBC <1 /hpf (0 - 4) Urine Microscopic WBC < 1 /HPF (0-5) Urine Squamous Epithelial Cells Few /hpf (<5) Urine Bacteria None seen /hpf (None Seen) Urine Glucose Normal mg/dL (Normal) Urine Opiates Screen Neg (NEGATIVE) Urine Fentanyl Screen Neg (NEGATIVE) Urine Barbiturates Screen Neg (NEGATIVE) Urine Phencyclidine Screen Neg (NEGATIVE) Urine Amphetamines Screen Neg (NEGATIVE) Urine Benzodiazepines Screen Neg (NEGATIVE) Urine Cocaine Screen Neg (NEGATIVE) Urine Cannabinoids Screen Neg (NEGATIVE) White Blood Count 10.4 10^3/uL (4.4-10.8) Red Blood Count 5.43 10^6/uL (4.0-5.20) Hemoglobin 15.1 g/dL (12.2-16.2) Hematocrit 46.1 % (36.0-46.0) Mean Corpuscular Volume 84.9 fL (80.0-100.0) Mean Corpuscular Hemoglobin 27.8 pg (28.0-32.0) Mean Corpuscular Hemoglobin Concent 32.7 g/dL (32.0-36.0) Red Cell Distribution Width 15.4 % (11.8-14.3) Platelet Count 237 10^3/uL (140-450) Mean Platelet Volume 9.2 fL (6.9-10.8) Neutrophils (%) (Auto) 89.6 % (37.0-80.0) Lymphocytes (%) (Auto) 7.1 % (10.0-50.0) Monocytes (%) (Auto) 2.8 % (0.0-12.0) Eosinophils (%) (Auto) 0.0 % (0.0-7.0) Basophils (%) (Auto) 0.5 % (0.0-2.0) Neutrophils # (Auto) 9.3 10 ^3/uL (1.6-8.6) Lymphocytes # (Auto) 0.7 10 ^3/uL (0.4-5.4) Monocytes # (Auto) 0.3 10 ^3/uL (0-1.3) Eosinophils # (Auto) 0 10 ^3/uL (0-0.8) Basophils # (Auto) 0.1 10 ^3/uL (0-0.2) Nucleated Red Blood Cells 0.0 % Sodium Level 138 mmol/L (136-145) Potassium Level 4.0 mmol/L (3.5-5.1) Chloride Level 105 mmol/L (98-107) Carbon Dioxide Level 25 mmol/L (20-31) Anion Gap 8 (5-15) Blood Urea Nitrogen 12 mg/dL (9-23) Creatinine 0.72 mg/dL (0.550-1.02) Glomerular Filtration Rate Calc 97 mL/min (>90) BUN/Creatinine Ratio 16.7 (10.0-20.0) Serum Glucose 199 mg/dL (74-106) Lactic Acid Level 1.8 mmol/L (0.4-2.0) Calcium Level 10.0 mg/dL (8.7-10.4) Total Bilirubin 0.5 mg/dL (0.2-1.0) Aspartate Amino Transferase (AST) 16 U/L (13-40) Alanine Aminotransferase (ALT) 17 U/L (7-40) Alkaline Phosphatase 78 U/L (46-116) Total Protein 7.3 g/dL (5.7-8.2) Albumin 4.2 g/dL (3.2-4.8) Test 05/07/25 17:24 05/07/25 12:02 05/07/25 08:03 D-Dimer, Quantitative 0.37 mg/L FEU (0.0-0.49) Troponin I High Sensitivity 4 ng/L (</=34) B-Type Natriuretic Peptide 37.45 pg/mL (0-100) Plasma/Serum Blood Alcohol 3.5 mg/dL (<10) Hemoglobin A1c 6.8 % A1C (<5.7) Thyroid Stimulating Hormone (TSH) 0.94 uIU/mL (0.55-4.78) Other Laboratory Tests 05/08/25 04:20 Brief Hx & Hospital Course: HPI: 55-year-old female with past medical history of Asthma, COPD not on home oxygen, Hypertension, GERD, type 2 Diabetes mellitus, Hyperlipidemia, CHF, x2, left eye surgery BIBEMS to [facility] due to sudden onset of shortness of breaths for 1 hour. As per EMS report, patient having shortness of breath associated with wheezing, oxygen saturation was low, administered breathing treatments x2, patient oxygen saturation improving to 92%. Patient transferred to [facility] for further management. Patient evaluated in bedside, patient admitted SOB started suddenly and getting worse for 1 hour, called EMS. Patient denies any chest pain, fever, headache, cough, dizziness or any provoking factor. Denies any recent sick contact, started new medicine/food. Patient compliance with her home medications. In [facility], COVID 19, influenza type a and B became negative, CRP-1.19, lactic acid -3.8, ABG(pH 7.34, pCO2 36, PO2 98, HC03 19.6), troponin x2 negative, EKG-sinus tachycardia, QTc 469. Patient currently denies abdominal pain, fever, dysuria, leg swelling. Patient able to ambulate without using any walker or cane. Summary: 05/07-patient continues to be short of breath, morbidly obese, diffuse wheezing expiratory and distant breath sounds in all lung giron.. Patient likely in COPD exacerbation, likely worsened with poorly uncontrolled MIKHAIL and ohs. Patient declining CTA. Unable to rule out PE. We will continue DVT prophylaxis. Get we will get D-dimer and ultrasound lower extremities to look for DVTs. Currently low suspicion for DVT even no significant leg swelling in either extremities. Otherwise continue medical management as planned (azithromycin, Solu-Medrol IV, duo nebs scheduled,) 05/08 - weaning off oxygen today. yesterday d-dimer neg, dvt LE BL neg. concern for PE is becoming lower. i think she has OHS and MIKHAIL , not able to afford copay for cpap. at this rate her prognosis is poor . she is morbidly obese and with talks with pcp, she hasnt made any significant progress despite ozempic. mikhail, ohs, morbic obesity/metabolic syndrome and copd is reason for current admission causing significant sob. ambulation is great though. if able to wean off oxygen, likely dc today. will need wieght loss, diet control (discussed), cpap, exercise 5 days/week atleast 1hr/day (speed walk or equivalent), copd abx/steroids. ABG on room air shows patient does not qualify for oxygen. Vital signs stable, stable for discharge as per plan below. Diagnosis: Acute hypoxic respiratory failure due to below COPD, in acute exacerbation, with pneumonitis Pulmonary embolus, ruled out Metabolic acidosis Lactic acidosis Neutrophilia Tachypnea Tachycardia CHF, ruled out Type 2 diabetes with hyperglycemia Hypertension Hyperlipidemia GERD Morbid obesity BMI 45 Plan: -Take prednisone short taper. Two tablets daily for 5 days, then 1 tablet daily for 3 days. -Take azithromycin 500 mg daily, for 5 days -Continue other home medications -Highly recommend acquiring CPAP machine with a at least 8 cm H2O for pressure - continue follow up with PCP, we had to continue pursuing options for weight loss. Follow up with PCP for review of discharge. Condition at Discharge: Fair Final Diagnosis/Problems List Acute hypoxic respiratory failure due to below CopD, in acute exacerbation, with pneumonitis Pulmonary embolus, ruled out Metabolic acidosis Lactic acidosis Neutrophilia Tachypnea Tachycardia CHF, ruled out Type 2 diabetes with hyperglycemia Hypertension Hyperlipidemia GERD Morbid obesity BMI 45 Discharge Disposition: Home Discharge Instruct/Medications Diet: Consistent carbohydrate Activity: No Restrictions, As Tolerated Follow Up/Referral: below Medications: below Scheduled Albuterol Sulfate (Ventolin), 2.5 MG NEB Q6HWA Amlodipine Besylate (Norvasc Tablet), 1 TAB PO DAILY Amoxicillin & Pot Clavulanate (Augmentin Tablet), 875 MG PO BID Atorvastatin Calcium (Atorvastatin Calcium), 1 TAB PO DAILY, (Reported) Azithromycin (Zithromax Z-Kali), 250 MG PO DAILY Azithromycin (Azithromycin), 500 MG PO DAILY Famotidine (Famotidine), 20 MG PO Q12HR Furosemide (Furosemide), 40 MG PO DAILY, (Reported) Ipratropium [place] (Ipratropium [place]), 0.5 MG NEB Q6HWA Metformin Hydrochloride (Metformin Hcl), 1 TAB PO DAILY@DINNER, (Reported) Metformin Hydrochloride (Metformin Hcl Er), 1 TAB PO DAILY, (Reported) Methylprednisolone (Medrol Dosepak), 4 MG PO UD Methylprednisolone (Medrol Dosepak), 4 MG PO UD Montelukast Sodium (Singulair), 10 MG PO HS Prednisone (Prednisone), 40 MG PO DAILY Semaglutide (Ozempic), 1 MG SC WEEKLY, (Reported) Scheduled PRN Albuterol Sulfate (Albuterol Sulfate), 2.5 % HHN Q6HP PRN Discharge Statement: "Patient was advised to return to the ER or call 911 if any headaches, dizziness, shortness of breath, chest pain, abdominal pain, bleeding, fevers, or worsening of medical condition. Patient was counseled about treatment plan, medications, possible side effects, patientverbalized understanding. All questions were answered to the best of my ability. This discharge took greater then 30 minutes in planning, reviewing documentation, counseling the patient, and discussing with other team members." Date of Service: May 08, 2025 Billing Provider: ANALI OLVERA MD Common Visit Codes: [id number] DISCH DAY >30min ANALI OLVERA MD May 08, 2025 16:18
== END 2025-05-08 17:59 | disposition home or self-care (01) | DRG 189 ==
LOC: TELE-WESTW 00:50
PROVIDERS: ADMIT Student in an Organized Health Care Education/Training Program; ATTEND Student in an Organized Health Care Education/Training Program
PROC: 5A09357 Assistance with Respiratory Ventilation, Less than 24 Consecutive Hours, Continuous Positive Airway Pressure (ICD-10-PCS; principal; 2025-05-07)
DX: J96.01 Acute respiratory failure with hypoxia (principal); J44.1 Chronic obstructive pulmonary disease with (acute) exacerbation; E87.20 Acidosis, unspecified; E66.2 Morbid (severe) obesity with alveolar hypoventilation; Z68.42 Body mass index [BMI] 45.0-49.9, adult; J98.4 Other disorders of lung; D72.0 Genetic anomalies of leukocytes; E11.65 Type 2 diabetes mellitus with hyperglycemia; I10 Essential (primary) hypertension; K21.9 Gastro-esophageal reflux disease without esophagitis; E88.810 Metabolic syndrome; E78.5 Hyperlipidemia, unspecified; R00.0 Tachycardia, unspecified; Z90.710 Acquired absence of both cervix and uterus; Z82.49 Family history of ischemic heart disease and other diseases of the circulatory system; Z79.84 Long term (current) use of oral hypoglycemic drugs; Z79.899 Other long term (current) drug therapy
CPT/HCPCS: 36415; 36600; 80053; 80307; 80320; 81001; 82805; 82962; 83036; 83605; 83880; 84443; 84484; 85025; 85379; 87040; 87081; 93306; 93970; 94640; 94660; G0378; J1815

== ENCOUNTER → 2025-06-12 | Outpatient (CLI) | payer OTHER, MEDICAID ==
[~2025-06-12] MED LIST changes: +AZIT500T66 PO; -AZITTAB PO; -METH4PAK PO; +PRED20TA2 PO
[2025-06-12 11:41] LABS: Hematocrit 44.6 % (36.0-46.0); Hemoglobin 14.9 g/dL (12.2-16.2); Mean Corpuscular Hemoglobin 27.9 pg (28.0-32.0); Mean Corpuscular Volume 83.7 fL (80.0-100.0); Nucleated Red Blood Cells % 0.1 %
[2025-06-12 11:47] LABS: Urine Protein, UAD Negative (Negative)
[2025-06-12 11:50] LABS: Albumin 4.3 g/dL (3.2-4.8); Alkaline Phosphatase 90 U/L (46-116); Anion Gap 10 (5-15); BUN/Creatinine Ratio 10.3 (10.0-20.0); Calcium 9.0 mg/dL (8.7-10.4); Carbon Dioxide 25 mmol/L (20-31); Chloride 104 mmol/L (98-107); Cholesterol 186 mg/dL (< 200); Glucose 105 mg/dL (74-106); HDL Cholesterol 49 mg/dL (40-59); Potassium 3.9 mmol/L (3.5-5.1); Sodium 139 mmol/L (136-145); Total Protein 7.2 g/dL (5.7-8.2); Triglycerides 109 mg/dL (< 150)
[2025-06-12 11:51] LABS: Alanine Aminotransferase < 9 U/L (7-40); Bilirubin, Total 0.7 mg/dL (0.2-1.0); Blood Urea Nitrogen 7 mg/dL (9-23)
[2025-06-12 12:29] LABS: Microalb/Creat Ratio, Urine 5.00
== END | disposition home or self-care (01) ==
LOC: LAB 10:59
PROVIDERS: ATTEND Internal Medicine
DX: I13.0 Hypertensive heart and chronic kidney disease with heart failure and stage 1 through stage 4 chronic kidney disease, or unspecified chronic kidney disease (principal); E11.22 Type 2 diabetes mellitus with diabetic chronic kidney disease; I50.32 Chronic diastolic (congestive) heart failure; E11.39 Type 2 diabetes mellitus with other diabetic ophthalmic complication; E11.21 Type 2 diabetes mellitus with diabetic nephropathy; E11.69 Type 2 diabetes mellitus with other specified complication; E78.2 Mixed hyperlipidemia; I16.0 Hypertensive urgency; N18.9 Chronic kidney disease, unspecified
CPT/HCPCS: 36415; 80053; 80061; 81001; 82043; 82570; 83036; 84439; 84443; 85025